=== PATIENT | male | born 1955 | race Caucasian/White ===

== ENCOUNTER 2017-08-02 17:30 | Inpatient (IN) | payer OTHER ==
[~2017-08-02] VITALS: Ht 181.6 cm; Wt 97.2 kg
[~2017-08-02 17:30] MED LIST: ALLO300T29 PO; ASA325 PO; ATEN50TA7 PO; FISH PO; MELA3TAB46 PO; METF10002 PO; MULT-1018 PO; [UNRECOGNIZED DRUG - CODE] PO
[2017-08-02 17:43] VITALS: BP 113/80; PULSE 86; RESP 16; O2SAT 97
[2017-08-02 17:57] VITALS: PULSE 134; RESP 20; O2SAT 100
[2017-08-02 18:23] LABS: BASOPHILS % (AUTO) 0.3 % (0-3); EOSINOPHILS % (AUTO) 2.2 % (0-5); MONOCYTES % (AUTO) 11.6 % (4-12); Mean Corpuscular Hemoglobin 30.2 pg (27.0-35.0); NEUTROPHILS % (AUTO) 70.8 % (40-74); Platelet Count 251 bil/L (150-400)
--- NOTE | 2017-08-02 18:36 | ED.REPORT ---
HPI-Abd Pain M 40 and Over Date of Service Aug 02, 2017 ED Provider: Gabriel Meyer DO A 62 year old male with a history of appendectomy, hernia, diabetes and hypertension presents to the ED complaining of diarrhea. The pt has been experiencing watery diarrhea for nearly five weeks. He initially experienced eight to ten episodes daily. The pt also had hives for several days two weeks ago, but this has resolved. He admits to abdominal pain and diaphoresis but denies pain with bowel movements. A stool sample left with his PCP tested negative for C. difficile, parasites, and other concerning causes of diarrhea. He was prescribed antibiotics on 07/29/2017 and felt well for three days. However the pt once again experienced watery diarrhea this morning, in addition to two episodes of hematochezia and increased gas. He also had one episode of nausea and vomiting today, which is the first time that this has happened since his symptoms began. The pt's last colonoscopy was five years ago, at which point several polyps were removed. Nursing Notes Stated Complaint: STOMACH Chief Complaint: Male Abdominal Pain Nursing Notes Reviewed: Yes Allergies: Coded Allergies: Penicillins (Verified Allergy, Severe, WEIGHT LOSS AND TURNED BRIGHT RED, 08/02/17) morphine (Verified Allergy, Severe, VIOLENT VOMITING, 08/02/17) Scheduled Allopurinol-Expunged Drug, Do Not Renew! (Allopurinol-Expunged Drug, Do Not Renew!) 300 Mg Tablet 300 MG PO AM Aspirin-Expunged Drug, Do Not Renew! (Aspirin-Expunged Drug, Do Not Renew!) 325 Mg Tablet 325 MG PO DAILY Atenolol-Expunged Drug, Do Not Renew! (Atenolol-Expunged Drug, Do Not Renew!) 50 Mg Tablet 50 MG PO AM Fish Oil-Expunged Drug, Do Not Renew! (Fish Oil-Expunged Drug, Do Not Renew!) Cap 3 CAP PO BID MELATONIN-Expunged Drug, Do Not Renew! (MELATONIN-Expunged Drug, Do Not Renew!) 3 Mg Tab.rapdis 3 MG PO HS MULTIVITAMIN-Expunged Drug, Do Not Renew! (MULTI VITAMIN -Expunged Drug, Do Not Renew!) 1 Each Tablet 1 EACH PO DAILY Metformin-Expunged Drug, Do Not Renew! (Metformin-Expunged Drug, Do Not Renew!) 1,000 Mg Tablet 1,000 MG PO AM CONTRAINDICATED: MALES SrCr 1.5 OR GREATER; FEMALES SrCr 1.4 ORGREATER ORCrCl <60; HOLD METFORMIN 48 HOURS AFTER IV CONTRAST ADMINISTRATION. Triamterene/HCTZ-Expunged Drug, Do Not Renew! (TILDBFT-70-Qmeibwff Drug, Do Not Renew!) 1 Ea Cap 1 EA PO AM General Time Seen by MD: 18:31 Chief Complaint Other (Diarrhea) Hx Obtained From: Patient Arrived By: Walk-in Sudden in Onset?: No Onset Occurred: More than a week ago... Symptom Duration: Since onset Recent Healthcare: Recent doctor visit Similar Sx Previous: No Past Medical History Past Medical History kidney stones Reports: Diabetes mellitus, Hypertension Past Surgical History hernia repair Reports: Appendectomy Smoking History Current Some Day Smoker (cigar) Social History Other Social History: Good social support Ambulatory Status Independent Review of Systems Review of Systems Note: denies pain with bowel movements Respiratory: Denies: Non-productive cough, Shortness of breath Cardiovascular: Denies: Chest pain GI: Reports: Abdominal pain, Diarrhea, Hematochezia, Nausea, Vomiting Musculoskeletal: Denies: Back pain, Neck pain Complete sys rev & neg: except as marked. Skin: Reports Diaphoresis Allergy / Immune: Reports: Hives (resolved) Physical Exam Initial Vital Signs Vital Signs (First) Date Time Temp Pulse Resp B/P Pulse Ox O2 Delivery O2 Flow Rate FiO2 08/02/17 17:43 37 86 16 113/80 97 Room Air Initial VS: Reviewed General/Constitutional: Awake, Alert Respiratory / Chest: Atraumatic, Breath sounds NL, Breath sounds = bilat, No respiratory distress Cardiovascular: Heart rate NL, Regular rhythm, Heart sounds NL Abdomen: Atraumatic, Soft mild right-sided tenderness Back: Atraumatic, Full range of motion Head / Eyes: Atraumatic, Normocephalic, PERRL, EOMI ENT: Atraumatic, Airway patent, Mucous membranes moist Skin: Atraumatic, Color NL, No rash, Warm, Dry Rectum / Perineum: No gross blood, No mass small right-sided hemorrhoid, mildly inflamed no gross blood no palpable internal hemorrhoids guaiac negative Neurologic: Oriented X3, Speech NL, No motor deficits, No sensory deficits Neck: Atraumatic, Supple, Full range of motion Upper Extremity / MS: Atraumatic, Full range of motion Lower Extremity / Pelvis / MS: Atraumatic, Full range of motion Psychiatric: Affect NL, Mood NL Interpretation & Diagnostics Lab Results Interpretation Result Diagram: 08/02/177 08/02/177 Test 08/02/17 18:17 08/02/17 19:53 White Blood Count 23.1th/mm3 (3.8-10.1) Red Blood Count 5.86mil/mm3 (4.40-5.80) Hemoglobin 17.7g/dL (13.8-17.2) Hematocrit 51.0% (41.0-50.0) Mean Corpuscular Volume 87.0fL (81-100) Mean Corpuscular Hemoglobin 30.2pg (27.0-35.0) Mean Corpuscular Hemoglobin Concent 34.7% (32.0-37.0) Red Cell Distribution Width 14.2% (12.3-15.4) Platelet Count 251bil/L (150-400) Neutrophils (%) (Auto) 70.8% (40-74) Lymphocytes (%) (Auto) 14.7% (14-46) Monocytes (%) (Auto) 11.6% (4-12) Eosinophils (%) (Auto) 2.2% (0-5) Basophils (%) (Auto) 0.3% (0-3) Sodium Level 138mEq/L (134-144) Potassium Level 3.7mEq/L (3.5-5.2) Chloride Level 96mEq/L (97-108) Carbon Dioxide Level 24mmol/L (18-29) Blood Urea Nitrogen 19mg/dL (8-27) Creatinine 1.30mg/dL (0.76-1.27) Estimat Glomerular Filtration Rate 60mL/min (>59) Glucose Level 132mg/dL (60-99) Calcium Level 9.8mg/dL (8.5-10.1) Total Bilirubin 0.5mg/dL (0.0-1.2) Aspartate Amino Transf (AST/SGOT) 92U/L (0-50) Alanine Aminotransferase (ALT/SGPT) 158U/L (0-44) Alkaline Phosphatase 92U/L (25-160) Total Protein 8.1g/dL (6.4-8.4) Albumin 4.6g/dL (3.4-5.0) Lipase 46U/L (13-60) Hold Hope Top Tube Received (Received) Urine Color Dark yellow (YELLOW) Urine Appearance Hazy (CLEAR,HAZY) Urine pH 5.5 (5.0-8.0) Urine Specific [place] 1.025 (1.003-1.035) Urine Protein Negativemg/dL (NEG,TRACE) Urine Glucose (UA) Negativemg/dL (NEGATIVE) Urine Ketones Negativemg/dL (NEGATIVE) Urine Occult Blood Negative (NEGATIVE) Urine Nitrite Negative (NEGATIVE) Urine Bilirubin Negative (NEGATIVE) Urine Urobilinogen Normalmg/dL (NORMAL) Urine Leukocyte Esterase Negative (NEGATIVE) Urine RBC 0-2/hpf (0-2) Urine WBC 0-5/hpf (0-5) Urine Epithelial Cells Occasional/hpf (NONE-MOD) Urine Crystals Amorphous urates (NONE Urine Bacteria Few/hpf (NONE-FEW) Urine Hyaline Casts None/lpf (NONE) Urine Granular Casts None seen (NONE SEEN) Urine Waxy Casts None seen (NONE SEEN) Urine Red Blood Cell Casts None seen (NONE SEEN) Urine White Blood Cell Casts None seen (NONE SEEN) Urine Mucus None seen (None Seen) Urine Trichomonas None seen (NONE SEEN) Urine Yeast None (NONE SEEN) Urinalysis Comment None Urine Culture Reflexed Not indicated CT Abd / Pelvis Interpretation IMPRESSION: 1. Mild appearance of diffuse small bowel thickening suggestive of enteritis. 2. Nonspecific appearance of scattered minimally prominent fluid filled colon loops. This could be secondary to given history of diarrhea. No definitive obstruction or inflammatory change is identified. Dictated by: Shahana Siegel M.D. on 08/02/2017 at 20:47 Approved by: Shahana Siegel M.D. on 08/02/2017 at 20:49 Interpretation / Wet Read by: Interpret - Radiologist Re-Eval/Medical Decision Source of Hx: Old records Time of Eval: 22:36 Patient Status: Condition improved Re-Evaluation/Progress Note: Pt rechecked, who remains uncomfortable. Plan for GI consult is discussed. Time of Eval: 23:15 Patient Status: Condition improved Re-Evaluation/Progress Note: Pt rechecked and lab results are discussed. Pt requests admission for endoscopy. Time of Eval: 23:23 Re-Evaluation/Progress Note: Pt rechecked, who is resting. The diagnosis and plan for admission are discussed. The pt understands and agrees with the plan. All questions are addressed at this time. Consultation #1: Referral / Consult Name: Fran Joseph MD Call Returned at: 22:53 Target Developer: Agrees with eval, Agrees with plan Note: Spoke with Dr. Joseph GI, regarding pt's case. Dr. Joseph agrees with the evaluation and plan. Consultation #2: Referral / Consult Name: Fran Joseph MD Call Returned at: 23:18 Target Developer: Agrees with eval Note: Spoke with Dr. Joseph about the possibility of admission and endoscopy. Dr. Joseph requests fecal potassium and sodium. Consultation #3: Referral / Consult Name: Rey Meadows MD Consulted With: Hospitalist Call Returned at: 23:31 Target Developer: Agrees with eval, Agrees with plan, Accepts admit Note: Spoke with Dr. Meadows, hospitalist, regarding pt's case. Dr. Meadows agrees with the evaluation and agrees to admit the pt. Counseled Regarding: Diagnosis, Lab results, Need for admission Discharge & Departure Primary Impression: Enteritis Additional Impressions: Leukocytosis Leukocytosis type: unspecified Qualified Code: D72.829 - Elevated white blood cell count, unspecified Nausea & vomiting Vomiting type: unspecified Vomiting Intractability: non-intractable Qualified Code: R11.2 - Nausea with vomiting, unspecified Diarrhea Diarrhea type: unspecified type Qualified Code: R19.7 - Diarrhea, unspecified Disposition: ADMITTED TO HOSPITAL Vital Signs - All Vital Signs Date Time Temp Pulse Resp B/P Pulse Ox O2 Delivery O2 Flow Rate FiO2 08/02/17 22:00 37.1 86 16 118/78 98 Room Air 08/02/17 17:57 08/02/17 17:43 37 86 16 113/80 97 Room Air )( All Prior VS Reviewed: Yes Condition: Stable Referrals: Walker Haro MD (PCP) Fran Joseph MD Scribe Attestation Portions of this note were transcribed by Gil Martines. I, Dr. Meyer personally performed the history, physical exam and medical decision-making; I reviewed and confirmed the accuracy of the information in the transcribed note. copies to: Walker Haro MD; Fran Joseph MD, Gary R DO Aug 02, 2017 18:36 GIL MARTINES Aug 02, 2017 18:59
[2017-08-02] MEDS ORDERED: Iohexol 300 mg/mL 30 mL Inj PO ONE (19:00)
[2017-08-02] MEDS ORDERED: 0.9% Sodium Chloride 1,000 ML IV ONE (19:00)
[2017-08-02] MEDS ORDERED: Ondansetron 2 mg/mL 2 mL Inj IVPUSH ONE (19:00)
[2017-08-02 20:09] LABS: APPEARANCE,URINE HAZY (CLEAR,HAZY); COLOR,URINE DARK YELLOW (YELLOW); OCCULT BLOOD,URINE NEGATIVE (NEGATIVE); PH,URINE 5.5 (5.0-8.0); UROBILINOGEN,URINE NORMAL (NORMAL)
--- NOTE | 2017-08-02 20:50 | DRSVH ---
PROCEDURE: CT ABDOMEN AND PELVIS WITH CONTRAST ([id number]) INDICATIONS: R sided abd pain, diarrhea x1 mo, TECHNIQUE: After the administration of oral and intravenous contrast, 5 mm thick sections acquired from the diap hragms to the symphysis. 5 mm thick coronal and sagittal reformats were performed. For radiation do se reduction, the following was used: automated exposure control, adjustment of mA and/or kV accordi ng to patient size. COMPARISON: None. FINDINGS: Image quality: Excellent. ABDOMEN: Lung bases: Lung bases are clear. Heart size is normal. Solid organs: Liver and spleen are normal in size and enhancement. Gallbladder is unremarkable. Bi liary system is non-dilated. Pancreas enhances normally. No adrenal nodules. Kidneys are normal in size and enhancement, without hydronephrosis. Peritoneum and bowel: The overall bowel gas pattern is nonspecific. There are fluid filled loops of c olon, with several areas minimally prominent. Small bowel loops demonstrate overall appearance of mil d thickening. Nodes and vessels: No retroperitoneal or mesenteric adenopathy. Aorta and inferior vena cava are no rmal in caliber. Miscellaneous: No ventral hernias. PELVIS: Genitourinary: Bladder wall thickness is normal. Prostate gland is enlarged. Miscellaneous: No inguinal hernias or adenopathy. Bones: No suspicious bony lesions. No vertebral body compression fractures. IMPRESSION: 1. Mild appearance of diffuse small bowel thickening suggestive of enteritis. 2. Nonspecific appearance of scattered minimally prominent fluid filled colon loops. This could be se condary to given history of diarrhea. No definitive obstruction or inflammatory change is identified. Dictated by: Shahana Siegel M.D. on 08/02/2017 at 20:47 Approved by: Shahana Siegel M.D. on 08/02/2017 at 20:49
[2017-08-02 22:00] VITALS: BP 118/78; PULSE 86; RESP 16; O2SAT 98
[2017-08-03] VITALS (7 sets, daily range): BP systolic 114–138; BP diastolic 64–81; PULSE 54–78; RESP 16–20; O2SAT 94–98
[2017-08-03] MEDS ORDERED: 0.9% Sodium Chloride 1,000 ML IV SCH (00:43)
[2017-08-03] MEDS ORDERED: Alum-Mag Hydrox-Simeth 30 mL Suspension PO PRN (00:45)
[2017-08-03] MEDS ORDERED: Polyethylene Glycol (PEG) 17 Gm Powder PO PRN (00:45)
[2017-08-03] MEDS ORDERED: Ondansetron 2 mg/mL 2 mL Inj IVPUSH PRN (00:45)
--- NOTE | 2017-08-03 01:02 | PCM.HPMED ---
Subjective Date of Service Aug 03, 2017 Primary Provider: Admitting Physician: Rey Meadows MD Primary Care Physician: Walker Haro MD Attending Physician: Rey Meadows MD Chief Complaint: Diarrhea History of Present Illness: 62-year-old male history of hypertension and type II diabetes who presents emergency department with 5 weeks of persistent diarrhea up to 8 times daily with new bloody diarrhea today. Patient states that this came on suddenly one day and typically lasts 4-5 days before remitting for a day or so. Today the patient notes bright red bloody diarrhea this morning and had 5 bowel movements before noon. 3 of the other 4 bowel movements were nonbloody. As a first occurrence of hematochezia as his bowel movements are usually yellow in color. Patient also one bout of nonbloody emesis while in the hospital. Patient denies fever, chills, chest pain, shortness breath, anorexia, dizziness, or dysuria. He does state that he has mild epigastric pain worse on the right than on the left but denies any association with food. Over the last week or so the patient been having intermittent hives that are covered in large portions of his torso and arms that remit within 24-48 hours. Has never had this before. He denies any neurological changes. Patient has gone through evaluation by his PCP as an outpatient and in the ED today had a negative stool PCR. 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 His last colonoscopy was 5 years ago and he reports that he had a couple of small benign polyps removed. Denies a family history of colon cancer. In the emergency department the patient had a leukocytosis of 23,000, although his hemoglobin looks concentrated. Creatinine was 1.3 and has mild LFT elevations. UA was negative. CT of the abdomen shows mild diffuse small bowel thickening. Review of Systems: Complete review of systems performed; pertinent positives and negatives per history of present illness, all other systems reviewed and are negative Allergies Coded Allergies: Penicillins (Verified Allergy, Severe, WEIGHT LOSS AND TURNED BRIGHT RED, 08/02/17) morphine (Verified Allergy, Severe, VIOLENT VOMITING, 08/02/17) Home Medications Allopurinol-Expunged Drug, Do Not Renew! (Allopurinol-Expunged Drug, Do Not Renew!) 300 Mg Tablet 300 MG PO AM Aspirin-Expunged Drug, Do Not Renew! (Aspirin-Expunged Drug, Do Not Renew!) 325 Mg Tablet 325 MG PO DAILY Atenolol-Expunged Drug, Do Not Renew! (Atenolol-Expunged Drug, Do Not Renew!) 50 Mg Tablet 50 MG PO AM Fish Oil-Expunged Drug, Do Not Renew! (Fish Oil-Expunged Drug, Do Not Renew!) Cap 3 CAP PO BID MELATONIN-Expunged Drug, Do Not Renew! (MELATONIN-Expunged Drug, Do Not Renew!) 3 Mg Tab.rapdis 3 MG PO HS MULTIVITAMIN-Expunged Drug, Do Not Renew! (MULTI VITAMIN -Expunged Drug, Do Not Renew!) 1 Each Tablet 1 EACH PO DAILY Metformin-Expunged Drug, Do Not Renew! (Metformin-Expunged Drug, Do Not Renew!) 1,000 Mg Tablet 1,000 MG PO AM CONTRAINDICATED: MALES SrCr 1.5 OR GREATER; FEMALES SrCr 1.4 ORGREATER ORCrCl <60; HOLD METFORMIN 48 HOURS AFTER IV CONTRAST ADMINISTRATION. Triamterene/HCTZ-Expunged Drug, Do Not Renew! (ILXIBBC-18-Yogfuamn Drug, Do Not Renew!) 1 Ea Cap 1 EA PO AM PMH kidney stones Diabetes mellitus Hypertension Surgical History Hernia repair Appendectomy Family History Mother's past away and father has no known medical history Social History Hx Alcohol Use: No Hx Substance Use: No Hx Tobacco Use: No Smoking Status: Current Some Day Smoker (occasional cigar) Living Arrangement: with Family Exam Vital Signs Vital Sign - Last Date Time Temp Pulse Resp B/P Pulse Ox O2 Delivery O2 Flow Rate FiO2 08/02/17 22:00 37.1 86 16 118/78 98 Room Air Exam General: Pleasant age-appropriate male in no acute distress HEENT: PERRLA, EOMI, nonicteric, membranes dry Lymph: No lymphadenopathy Cardio: Regular rate and rhythm Respiratory: CTA bilaterally, no wheezes, no crackles Abdomen: Guarded, positive bowel sounds, mild tenderness in the epigastrium greater on right than on left, nondistended Extremities: No edema, 5/5 strength, sensation intact Psych: Appropriate mood and affect Neuro: CN II through XII grossly intact, sensation intact throughout Skin: No rash Lab and Diagnostics Result Diagram: 08/02/17181608/02/171816 X-Rays, CTs and MRIs Abdominal CT 1. Mild appearance of diffuse small bowel thickening suggestive of enteritis. 2. Nonspecific appearance of scattered minimally prominent fluid filled colon loops. This could be secondary to given history of diarrhea. No definitive obstruction or inflammatory change is identified. Dictated by: Shahana Siegel M.D. on 08/02/2017 at 20:47 Assessment & Plan 62-year-old male with type II diabetes and hypertension who presents to the ED due to 5 weeks of ongoing diarrhea up to 8 times daily with no hematochezia. Subacute enteritis with leukocytosis and 2 bouts of hematochezia; present admission; ongoing -Patient's been suffering from this for 5 weeks with up to 8 bowel movements daily -Patient had hematochezia this morning likely related to hemorrhoids that were seen on physical exam by the ED physician -Previous outpatient workup did not reveal a cause and PCR of stool did not reveal a obvious infectious etiology -CT of abdomen revealed diffuse small bowel thickening -Leukocytosis of 23,000 is likely dilutional but will cover with levofloxacin ( formulary) tonight -Received 1 L normal saline in the ED and 2 more on the floor -Normal saline 125 mL/HR -Dr. Joseph from gastroenterology was consult and will see the patient tomorrow -Etiology is somewhat unclear although with right upper quadrant pain questionable biliary disease causing osmotic diarrhea; also be possible Crohn's although less likely -It is also possible that this patient is now reacting to the metformin that he is been taking for some time, although this is less likely -Famotidine 20mg IV BID Acute kidney injury with AGMA; present admission; ongoing -Baseline questionable as last creatinine was couple of years ago and was 1.4; however feel this was likely not his baseline -Current creatinine was 1.3 and patient seemed contrast for CT -Avoid nephrotoxic medications -3 L normal saline and 125 mL/HR -Recheck in a.m. -If refractory to fluids and continues to progress consider ultrasound and nephrology consult -AG of 18 likely related to diarrhea Mildly elevated transaminases; present admission; ongoing -could be due to patient's dehydration -We will recheck in a.m. -If not corrected suggest ultrasound and hepatitis screen Hypertension; present on admission; ongoing -Continue home atenolol -Hold HCTZ today Type II diabetes; present on admission; ongoing -Last A1c was reportedly 7 -Home medication: Metformin -Hold metformin -No lantus ordered; recommend starting after following insulin needs for 24 hours -Low dose correctional Gout; present on admission; ongoing -And stable on allopurinol for 10 years; we will continue Disposition: Patient is being admitted to inpatient status with expected length of stay greater than two midnights due to to severity of presentation, duration of treatment, and risks of adverse events disposition Pain Evaluation: Adequate Pain Control GI Prophylaxis: H2 gabi VTE Prophylaxis Indicated: Contraindicated (rectal bleeding) VTE Mechanical Devices: Intermittant Pneumatic CD Resuscitation Status: CPR: Attempt Resuscitation Attending Statement The patient was seen and examined together with Dr. Ruiz on 08/02 and I agree with the history, exam and plan as outlined in the note above. Rick Ruiz DO Aug 03, 2017 01:02 Rey Meadows MD Aug 03, 2017 07:14
[2017-08-03] MEDS ORDERED: 0.9% Sodium Chloride 1,000 ML IV ONE (01:10)
[2017-08-03] MEDS ORDERED: Glucose 40% Oral Gel 15 Gm Tube PO PRN (01:20)
[2017-08-03] MEDS ORDERED: Dextrose 10% 250 ML IV PRN (01:30)
[2017-08-03] MEDS ORDERED: TADA5TAB2 PO (01:33)
[2017-08-03] MEDS ORDERED: ASPI-973 PO (01:33)
[2017-08-03] MEDS ORDERED: METF500T4 PO (01:33)
[2017-08-03] MEDS: levoFLOXacin Inj 750 MG in IV Premix 1 EACH IV SCH (02:40)
--- NOTE | 2017-08-03 04:03 | NUR ---
Admission Pt admitted to [facility] rm 1004 at 0115 from the ED. Pt able to transfer with [facility] from [facility] to bed. Pt is A/O x4, making needs known. Diagnosis of enteritis. Pt states pain is uncomfortable but not reportable. IV to Lt AC SL, IV fluids started. RA. SCD's. Pt oriented to room, call light. Pt has had over 30 days of diarrhea, stool samples negative. Independent in room, with steady gait to BR. NPO at this time pending GI consult. CPR. Call light in reach, family at bedside. Care continues
[2017-08-03] MEDS ORDERED: HYDROmorphone 1 mg/mL Inj IVPUSH PRN (04:45)
[2017-08-03] MEDS: 0.9% Sodium Chloride 1,000 ML IV SCH ×4 (05:32→21:55)
[2017-08-03 05:41] LABS: BASOPHILS % (AUTO) 0.3 % (0-3); EOSINOPHILS % (AUTO) 3.3 % (0-5); MONOCYTES % (AUTO) 11.5 % (4-12); Mean Corpuscular Hemoglobin 30.5 pg (27.0-35.0); Mean Corpuscular Volume 87.6 fL (81-100); Platelet Count 180 bil/L (150-400)
[2017-08-03 06:19] LABS: Magnesium 1.8 mg/dL (1.6-2.6); Phosphorus 3.2 mg/dL (2.5-4.9)
[2017-08-03] MEDS: Insulin LISPRO 300 Unit/3 mL Inj SUBQ SCH ×4 (07:16→22:00)
[2017-08-03] MEDS: Famotidine Inj 20 MG in IV Premix 1 EACH IV SCH ×2 (08:00→21:54)
[2017-08-03] MEDS: Sodium Chloride LOK Flush 10 mL Syringe IVFLUSH SCH ×2 (08:00→15:54)
[2017-08-03] MEDS ORDERED: Ciprofloxacin Inj 400 MG in IV Premix 1 EACH IV SCH (08:30)
--- NOTE | 2017-08-03 09:04 | NUR ---
Social Work: Initial Assessment D: EMR reviewed. Please see Initial Assessment linked to this note for more information. Pt is a 62 year old male admitted [place] with a readmit risk score of 3 for enteritis per H&P. Pt's insurance is [employer]. PCP is Walker Haro MD. GI to consult on pt. JAXSON met with pt and sister Floresita [phone] at bedside to conduct initial assessment. Pt was alert and oriented x3. Floresita is designated d/c planning mandolin repair person. SW explained role and wrote phone number on white board. SW provided [facility] Discharge Planning Checklist and encouraged pt to contact SW for any discharge planning questions. Pt lives at home with his father in [place]. Pt's father is independent with ADLs and pt is not a caregiver. Pt is independent with all ADLs and self care at baseline. Pt uses no DME at baseline. Pt drives. Pt has no HH or SNF history. Pt has no LTC or VA benefits. Pt has no DPOA on file, pt declined information related to DPOA. Pt is likely to d/c home with family to transport via POV. No orders have been received at this time. SW will continue to follow. A: Pt who is independent at baseline and has the capacity for self-care. P: Pt anticipated to discharge home with family to transport via POV. No SW needs identified, no MD orders received at this time. SW will continue to follow for needs until time of discharge. RO Joya Addendum: 08/03/17 at 0906 by MAIRA JEAN Amended: Links added.
[2017-08-03] MEDS ORDERED: KRIL1CAP PO (09:30)
--- NOTE | 2017-08-03 14:43 | PCM.CHPMED ---
Subjective Date of Service: Aug 03, 2017 Provider requesting consult: Gabriel Meyer DO Primary Physician: Admitting Physician: Rey Meadows MD Primary Care Physician: Walker Haro MD Attending Physician: Nirali Hernandez DO Admit Status: From the Emergency Department Chief Complaint: Chief Complaint: Diarrhea History of Present Illness: GASTROENTEROLOGY CONSULT NOTE: Attending Physician: Fran Joseph MD Resident Physician: Alisha Plaza DO Xavier Reid is a 62-year-old gentleman with a history of hypertension, diabetes mellitus type 2, and nephrolithiasis who presented to the ED with a 5 week history of diarrhea, now with 1-2 days of bloody stool. He states that a little over a month ago he developed profound diarrhea, noting 8+ liquid stools per day. Associated symptoms at that time included: fatigue, malaise, and generalized weakness as well as hives across his abdomen for 4-5 days. He states that the rash did not itch and has since resolved without treatment. He was evaluated by his PCP since the onset of symptoms and a stool sample was reportedly negative for C. diff, parasites, or other concerning causes of diarrhea. He notes that after approximately two weeks he started to feel better but his symptoms ultimately returned. He denies abdominal pain, urinary symptoms , recent travel, sick contacts, changes in diet or medications. Prior to the day of admission he denies bloody or dark black stool. At presentation he reported bright red blood per rectum and 5 bowel movements that morning. Additionally, he had been without nausea or vomiting but vomited once in the ED. This was noted to be bilious in nature and without blood. Currently he denies headache, dizziness, change in vision, rash, fever, chills, chest pain, shortness of breath, and abdominal pain. He has not appreciated a pattern to his symptoms or any aggravating or alleviating factors. He states that he does not drink alcohol and occasionally smokes a cigar. He denies illicit drug use and recently retired. He reports a colonoscopy five years ago where a few benign polyps were removed. He has no known history of gastrointestinal disorders or colon cancer. In the ED, vital signs were within normal limits. CBC was significant for a leukocytosis (wbc 23.1), hemoconcentration (Hb 17.7/Hct 51) and CMP showed a creatinine of 1.3 and mildly elevated LFTs. Stool PCR and UA were negative and CT abdomen showed mild appearance of diffuse small bowel thickening suggestive of enteritis and no definitive obstruction or inflammatory change is identified. Review of Systems: Complete review of systems conducted and as above in history and physical. Otherwise negative. PMH Past Medical History Nephrolithiasis Diabetes mellitus Hypertension Gout Bedside Blood Glucose: 113 Surgical History Hernia repair Appendectomy Home Medications Aspirin 81mg daily Metformin 500mg PO BID Tadalafil 5mg PO prn Atenolol 50mg PO BID Allopurinol 300mg PO AM Allergies: Coded Allergies: Penicillins (Verified Allergy, Severe, WEIGHT LOSS AND TURNED BRIGHT RED, 08/02/17) morphine (Verified Allergy, Severe, VIOLENT VOMITING, 08/02/17) Family History Family History Patient reports a mother with prior CVA, sister with breast cancer-currently undergoing treatment, and no known history of colon cancer. . Social History Hx Alcohol Use: NoHx Substance Use: NoHx Tobacco Use: No Smoking Status: Current Some Day Smoker (occasional cigar) Living Arrangement: with Family Exam Vital Signs Vital Sign - Last Date Time Temp Pulse Resp B/P Pulse Ox O2 Delivery O2 Flow Rate FiO2 08/03/17 07:55 36.8 68 18 118/64 97 Room Air Intake and Output 08/02/17 08/02/17 08/03/17 Cumulative From/Thru 15:00 23:00 07:00 08/02/17 17:43 - 08/03/17 05:39 Intake Total 1000 ml 200 ml 1200 ml Output Total 200 ml 200 ml Balance 1000 ml 0 ml 1000 ml Intake Oral 200 ml 200 ml IV Total 1000 ml 1000 ml Output Urine Total 200 ml 200 ml # Bowel Movements 3 3 General: Alert, Oriented X3, No Acute Distress Head: Normal Eyes: PERRLA, EOMI, Scleral Anicteric Mouth: Mucous Membr Moist/[place] Chest & Lungs: Clear to auscultation & percussion Cardiovascular: Regular Rate/Rhythm, Normal S1, Normal S2 Abdomen: Tender (mild RUQ/epigastric tenderness), Non-distended, No masses Extremities: No cyanosis/clubbing/edma bilat Neurological: Grossly Neurologically Intact, Normal Speech Lab and Diagnostics Labs Laboratory Tests Test 08/02/17 18:17 08/02/17 19:53 08/03/17 00:54 08/03/17 05:05 White Blood Count 23.1th/mm3 (3.8-10.1) 10.3th/mm3 (3.8-10.1) Red Blood Count 5.86mil/mm3 (4.40-5.80) 4.59mil/mm3 (4.40-5.80) Hemoglobin 17.7g/dL (13.8-17.2) 14.0g/dL (13.8-17.2) Hematocrit 51.0% (41.0-50.0) 40.2% (41.0-50.0) Mean Corpuscular Volume 87.0fL (81-100) 87.6fL (81-100) Mean Corpuscular Hemoglobin 30.2pg (27.0-35.0) 30.5pg (27.0-35.0) Mean Corpuscular Hemoglobin Concent 34.7% (32.0-37.0) 34.8% (32.0-37.0) Red Cell Distribution Width 14.2% (12.3-15.4) 13.9% (12.3-15.4) Platelet Count 251bil/L (150-400) 180bil/L (150-400) Neutrophils (%) (Auto) 70.8% (40-74) 62.0% (40-74) Lymphocytes (%) (Auto) 14.7% (14-46) 22.8% (14-46) Monocytes (%) (Auto) 11.6% (4-12) 11.5% (4-12) Eosinophils (%) (Auto) 2.2% (0-5) 3.3% (0-5) Basophils (%) (Auto) 0.3% (0-3) 0.3% (0-3) Sodium Level 138mEq/L (134-144) 140mEq/L (134-144) Potassium Level 3.7mEq/L (3.5-5.2) 3.8mEq/L (3.5-5.2) Chloride Level 96mEq/L (97-108) 106mEq/L (97-108) Carbon Dioxide Level 24mmol/L (18-29) 21mmol/L (18-29) Blood Urea Nitrogen 19mg/dL (8-27) 18mg/dL (8-27) Creatinine 1.30mg/dL (0.76-1.27) 1.14mg/dL (0.76-1.27) Estimat Glomerular Filtration Rate 60mL/min (>59) 70mL/min (>59) Glucose Level 132mg/dL (60-99) 113mg/dL (60-99) Calcium Level 9.8mg/dL (8.5-10.1) 8.2mg/dL (8.5-10.1) Total Bilirubin 0.5mg/dL (0.0-1.2) 0.6mg/dL (0.0-1.2) Aspartate Amino Transf (AST/SGOT) 92U/L (0-50) 58U/L (0-50) Alanine Aminotransferase (ALT/SGPT) 158U/L (0-44) 105U/L (0-44) Alkaline Phosphatase 92U/L (25-160) 60U/L (25-160) Total Protein 8.1g/dL (6.4-8.4) 5.6g/dL (6.4-8.4) Albumin 4.6g/dL (3.4-5.0) 3.5g/dL (3.4-5.0) Lipase 46U/L (13-60) Hold Hope Top Tube Received (Received) Urine Color Dark yellow (YELLOW) Urine Appearance Hazy (CLEAR,HAZY) Urine pH 5.5 (5.0-8.0) Urine Specific [place] 1.025 (1.003-1.035) Urine Protein Negativemg/dL (NEG,TRACE) Urine Glucose (UA) Negativemg/dL (NEGATIVE) Urine Ketones Negativemg/dL (NEGATIVE) Urine Occult Blood Negative (NEGATIVE) Urine Nitrite Negative (NEGATIVE) Urine Bilirubin Negative (NEGATIVE) Urine Urobilinogen Normalmg/dL (NORMAL) Urine Leukocyte Esterase Negative (NEGATIVE) Urine RBC 0-2/hpf (0-2) Urine WBC 0-5/hpf (0-5) Urine Epithelial Cells Occasional/hpf (NONE-MOD) Urine Crystals Amorphous urates (NONE Urine Bacteria Few/hpf (NONE-FEW) Urine Hyaline Casts None/lpf (NONE) Urine Granular Casts None seen (NONE SEEN) Urine Waxy Casts None seen (NONE SEEN) Urine Red Blood Cell Casts None seen (NONE SEEN) Urine White Blood Cell Casts None seen (NONE SEEN) Urine Mucus None seen (None Seen) Urine Trichomonas None seen (NONE SEEN) Urine Yeast None (NONE SEEN) Urinalysis Comment None Urine Culture Reflexed Not indicated Procalcitonin 0.02ng/mL (0.00-0.08) 0.05ng/mL (0.00-0.08) Lactic Acid Level 0.8mmol/L (0.4-2.0) Phosphorus Level 3.2mg/dL (2.5-4.9) Magnesium Level 1.8mg/dL (1.6-2.6) Microbiology 08/03/17 Blood Culture- pending 08/02/17 Stool PCR- Negative Result Diagram: 08/03/17 0505 08/03/17 0505 X-Rays, CTs and MRIs 08/02/17 - CT ABDOMEN AND PELVIS WITH CONTRAST IMPRESSION: 1. Mild appearance of diffuse small bowel thickening suggestive of enteritis. 2. Nonspecific appearance of scattered minimally prominent fluid filled colon loops. This could be secondary to given history of diarrhea. No definitive obstruction or inflammatory change is identified. Approved by: Shahana Siegel M.D. on 08/02/2017 at 20:49 . Assessment & Plan Assessment 62-year-old gentleman with a history of hypertension, diabetes mellitus type 2, gout, and nephrolithiasis who presented to the ED with a 5 week history of diarrhea and 1-2 days of bright red per rectum. GI consulted for further evaluation and management of possible GI bleed. Subacute enteritis uncertain etiology. -Etiologies to consider include: IBD, infectious, IBS, secretory diarrhea, microscopic colitis, and malabsorption syndromes. Possibly infectious, patient presented with a leukocytosis (wbc 23.1) and diarrhea for the past 5 weeks. However, he remains afebrile, leukocytosis has resolved and stool studies here and reportedly in the outpatient setting as well were negative. He did report 2- 3 episodes of hematochezia. However, he does have a history of hemorrhoids which is likely the source for his rectal bleeding. Patient's RUQ and epigastric tenderness on exam concerning for biliary disease and/or pancreatitis. Although imaging and lab findings thus far do not support this; lipase is within normal limits and LFTs not consistent with cholestasis. -CT abdomen did show diffuse small bowel thickening and no definitive obstruction or inflammatory change is identified. Elevated transaminases, uncertain etiology. -AST/ALT mildly elevated at 92/158 on admission with normal alk phos and total bili thus gallbladder pathology less likely. -AST and ALT trended down overnight, most recently AST 58 and ALT 105. Patient may have a component of fatty liver disease as AST/ALT are < 4 times upper limit of normal. -Pt denies hx of hepatitis and alcohol use. No hepatitis serologies on file, unlikely contributing but will consider checking if LFTs remain elevated or symptoms do not start to improve. RECOMMENDATIONS: -Check Giardia and cryptococcus antigen as these are more sensitive than PCR -Will check stool electrolytes and calculate osmotic gap. An osmotic gap of > 125 mOsm/kg suggests an osmotic diarrhea while a gap of <50 mOsm/kg suggests a secretory diarrhea -Continue antibiotics for now -Cholestyramine and Lomotil scheduled -Stop immodium Additional problems managed by primary hospitalist: -Acute kidney injury -Mildly elevated transaminases -Hypertension -Type II diabetes -Gout . I have seen and examined the patient with the resident and agree with above. Problems: Pain Evaluation: Adequate Pain Control GI Prophylaxis: H2 gabi VTE Prophylaxis Indicated: Contraindicated (rectal bleeding) VTE Mechanical Devices: Intermittant Pneumatic CD Resuscitation Status: CPR: Attempt Resuscitation Alisha Plaza DO Aug 03, 2017 08:32 Fran Joseph MD Aug 06, 2017 09:11
--- NOTE | 2017-08-03 14:44 | PCM.PNMED ---
Subjective Date of Service Aug 03, 2017 Subjective Patient is seen and examined, he says he had >9 BM this AM, has had some more nausea/vomiting. is recording these episodes carefully. States he came to the ED because he is "sick of" this not resolvign for 5-6 weeks. No c/o abdominal pain. States he saw " quite a bit of blood" in toilet. He was told he had a hemorrhoid int he ED. States blood was bright red. Had a colonoscopy when he was 57, does not remember who did it, it was at [facility] and he was told he is fine. Exam Vital Signs Vital Sign - Last Date Time Temp Pulse Resp B/P Pulse Ox O2 Delivery O2 Flow Rate FiO2 08/03/17 12:38 37.0 64 20 114/72 96 Room Air Intake and Output 08/02/17 08/02/17 08/03/17 Cumulative From/Thru 15:00 23:00 07:00 08/02/17 17:43 - 08/03/17 05:39 Intake Total 1000 ml 200 ml 1200 ml Output Total 200 ml 200 ml Balance 1000 ml 0 ml 1000 ml Intake Oral 200 ml 200 ml IV Total 1000 ml 1000 ml Output Urine Total 200 ml 200 ml # Bowel Movements 3 3 Exam General: NAD HEENT: NCAT Heart: RRR, no s3/s4 Lungs: CTA, no crackles or wheezes Abd: NT/ND, normal bowel sounds Neuro: AOA X 3, no focal deficits Psych: No agitation, affect is calm IVs and Medications IV Fluids NSS 100 cc/hr Medications Reviewed: Medications were reviewed in detail Lab and Diagnostics Result Diagram: 08/03/17 0505 08/03/17 0505 X-Rays, CTs and MRIs Abdominal CT 1. Mild appearance of diffuse small bowel thickening suggestive of enteritis. 2. Nonspecific appearance of scattered minimally prominent fluid filled colon loops. This could be secondary to given history of diarrhea. No definitive obstruction or inflammatory change is identified. Dictated by: Shahana Siegel M.D. on 08/02/2017 at 20:47 Assessment & Plan 62-year-old male with type II diabetes and hypertension who presents to the ED due to 5 weeks of ongoing diarrhea up to 8 times daily with no hematochezia. Subacute enteritis with leukocytosis and 2 bouts of hematochezia; present admission; ongoing -Patient's been suffering from this for 5 weeks with up to 8 bowel movements daily -Patient had hematochezia this morning likely related to hemorrhoids that were seen on physical exam by the ED physician -Previous outpatient workup did not reveal a cause and PCR of stool did not reveal a obvious infectious etiology -Etiology is somewhat unclear although with right upper quadrant pain questionable biliary disease causing osmotic diarrhea; also be possible Crohn's although less likely, he would have presented sooner. It is also possible that this patient is now reacting to the metformin that he is been taking for some time, although this is less likely -CT of abdomen revealed diffuse small bowel thickening -Leukocytosis of 23,000 iat admission, improved today at 10.3 -Received 1 L normal saline in the ED and 2 more on the floor -Normal saline 125 mL/HR -Dr. Joseph from gastroenterology was consult and will see the patient -Blood Cx are ordered and pending -IV Levaquin recommended for severe diarrhea like the one he is having -Famotidine 20mg IV BID Acute kidney injury with AGMA; present admission; ongoing -Baseline questionable as last creatinine was couple of years ago and was 1.4; however feel this was likely not his baseline -Current creatinine was 1.3 and patient had contrast for CT -Avoid nephrotoxic medications -NSS 125 mL/HR -If refractory to fluids and continues to progress consider ultrasound and nephrology consult -AG of 18 -->13 this am Mildly elevated transaminases; present admission; resolved - could be due to patient's dehydration --Due to his age, will order hep panel. Fatty liver is likely as ALT>AST --He has no RUQ pain to suggest biliary etiologies. -- RUQ U/S Hypertension; present on admission; ongoing -Continue home atenolol -Hold HCTZ today Type II diabetes; present on admission; ongoing -Last A1c was reportedly 7, A1C is pending -Home medication: Metformin -Hold metformin -Low dose correctional Gout; present on admission; ongoing -And stable on allopurinol for 10 years; we will continue Disposition: Patient is being admitted to inpatient status with expected length of stay greater than two midnights due to to severity of presentation, duration of treatment, and risks of adverse events disposition GI Prophylaxis: H2 gabi VTE Mechanical Devices: Intermittant Pneumatic CD Resuscitation Status: CPR: Attempt Resuscitation Time spent 30 min Nirali Hernandez DO Aug 03, 2017 14:32
--- NOTE | 2017-08-03 18:14 | NUR ---
Diarrhea/NPO Continues with ~hourly diarrhea. NPO for possible surgery. Confirmed with endo RN to keep pt NPO pending GI consult tonight.
--- NOTE | 2017-08-03 18:59 | DRSVH ---
PROCEDURE: US ABDOMEN, LIMITED ([id number]) INDICATIONS: nausea, elevated LFT TECHNIQUE: Real-time focused scanning was performed of the abdomen, with image documentation. COMPARISON: None. FINDINGS: The gallbladder wall measures up to 2.4 mm in thickness. No stones, sludge, or pericholecys tic fluid. The common bile duct measures 9.0 mm in diameter. IMPRESSION: 1. Mild common bile duct dilatation. No other findings to suggest biliary obstruction. If there is cl inical suspicion for choledocholithiasis or central biliary mass, MRCP may be helpful. 2. No findings to suggest acute cholecystitis. Dictated by: Christine Gray M.D. on 08/03/2017 at 18:56 Approved by: Christine Gray M.D. on 08/03/2017 at 18:58
[2017-08-03] MEDS ORDERED: DiphenOXYlate-Atropine 2.5 mg-0.025 mg Tablet PO PRN (19:55)
[2017-08-03] MEDS: Cholestyramine Resin Powder 4 Gm Packet PO SCH (22:21)
[2017-08-04] MEDS: Sodium Chloride LOK Flush 10 mL Syringe IVFLUSH SCH ×3 (00:30→16:08)
[2017-08-04 00:40] VITALS: BP 112/68; PULSE 69; RESP 16; O2SAT 92
[2017-08-04] MEDS: levoFLOXacin Inj 750 MG in IV Premix 1 EACH IV SCH (01:44)
[2017-08-04] MEDS: DiphenOXYlate-Atropine 2.5 mg-0.025 mg Tablet PO SCH ×3 (03:31→20:51)
[2017-08-04] MEDS: Cholestyramine Resin Powder 4 Gm Packet PO SCH ×4 (03:32→20:50)
[2017-08-04 04:07] LABS: Hepatitis A Antibody IgM Negative (Negative); Hepatitis B Core Antibody IgM Negative (Negative)
--- NOTE | 2017-08-04 04:40 | NUR ---
ACTIVITY: Pt. resting in bed most of the night, was awaken at 0330 for po medications, was unable to go back to sleep, then got up and ambulated around the hallway with his sister at his side. Pt. reported 2 liquid stools tonight one around 1800 and another one at about 2024, voided twice, denies nausea or vomiting. A & O, vss. On going care.
[2017-08-04 05:50] VITALS: BP 117/76; PULSE 54; RESP 16; O2SAT 96
[2017-08-04] MEDS: Insulin LISPRO 300 Unit/3 mL Inj SUBQ SCH ×4 (08:00→21:30)
[2017-08-04] MEDS: Famotidine Inj 20 MG in IV Premix 1 EACH IV SCH ×2 (08:28→20:51)
[2017-08-04 08:59] VITALS: BP 121/84; PULSE 53; RESP 16; O2SAT 99
[2017-08-04] MEDS: 0.9% Sodium Chloride 1,000 ML IV SCH ×2 (09:12→16:25)
--- NOTE | 2017-08-04 09:18 | PCM.PNMED ---
Subjective Date of Service Aug 04, 2017 Subjective GASTROENTEROLOGY PROGRESS NOTE: Attending Physician: Fran Joseph MD Resident Physician: Alisha Plaza DO No acute events overnight. Patient is doing well this morning and notes improvement in his diarrhea overnight. He denies fever, chills, abdominal pain, nausea, bloody or dark colored stool. He reports one BM overnight, which is a significant change from more than 10 the yesterday. Exam Vital Signs Vital Sign - Last Date Time Temp Pulse Resp B/P Pulse Ox O2 Delivery O2 Flow Rate FiO2 08/04/17 08:59 36.4 53 16 121/84 99 Room Air Intake and Output 08/03/17 08/03/17 08/04/17 Cumulative From/Thru 15:00 23:00 07:00 08/02/17 17:43 - 08/04/17 06:50 Intake Total 2224 ml 1514 ml 1921 ml 6859 ml Output Total 1550 ml 850 ml 2600 ml Balance 2224 ml -36 ml 1071 ml 4259 ml Intake Oral 0 ml 620 ml 820 ml IV Total 2224 ml 1514 ml 1301 ml 6039 ml Output Urine Total 1300 ml 500 ml 2000 ml Stool Total 250 ml 350 ml 600 ml # Bowel Movements 5 1 9 Exam General: Well-appearing, age-appropriate male in no acute distress. HEENT: Atraumatic. Anicteric sclera. Mucous membranes moist/pink Lungs: Clear to auscultation bilaterally with no crackles, wheezes, or rhonchi. Cardiovascular: Regular rate/rhythm. No murmurs Abdomen: Soft, Non-tender, Non-distended, No masses, Normoactive bowel tones Extremities: No cyanosis or edema Skin: Warm and dry. No obvious rashes or ulcerations Neurological: AOx3, No focal neurologic deficit. Normal speech IVs and Medications Medications Reviewed: Medications were reviewed in detail Lab and Diagnostics Laboratory Tests Test 08/03/17 17:42 08/03/17 18:01 08/03/17 20:35 08/03/17 20:55 Hemoglobin 14.3g/dL (13.8-17.2) 14.3g/dL (13.8-17.2) Hematocrit 40.2% (41.0-50.0) 41.8% (41.0-50.0) Test 08/04/17 00:55 08/04/17 05:25 Hemoglobin 13.7g/dL (13.8-17.2) 13.5g/dL (13.8-17.2) Hematocrit 40.0% (41.0-50.0) 39.4% (41.0-50.0) Sodium Level 141mEq/L (134-144) Potassium Level 3.9mEq/L (3.5-5.2) Chloride Level 107mEq/L (97-108) Carbon Dioxide Level 21mmol/L (18-29) Blood Urea Nitrogen 12mg/dL (8-27) Creatinine 1.06mg/dL (0.76-1.27) Estimat Glomerular Filtration Rate 76mL/min (>59) Glucose Level 116mg/dL (60-99) Calcium Level 8.2mg/dL (8.5-10.1) Microbiology 08/03/17 Blood Culture - NO GROWTH AFTER 24 HOURS 08/03/17 Stool for WBCs - Pending 08/03/17 Stool PCR - negative 08/03/17 Cryptococcus stool Ag- pending 08/03/17 Stool osmolality/electrolytes- pending 08/03/17 Hepatitis panel- Negative Result Diagram: 08/04/17 0525 08/04/17 0525 X-Rays, CTs and MRIs 08/02/17 - CT ABDOMEN AND PELVIS WITH CONTRAST IMPRESSION: 1. Mild appearance of diffuse small bowel thickening suggestive of enteritis. 2. Nonspecific appearance of scattered minimally prominent fluid filled colon loops. This could be secondary to given history of diarrhea. No definitive obstruction or inflammatory change is identified. Approved by: Shahana Siegel M.D. on 08/02/2017 at 20:49 08/03/17 - US ABDOMEN, LIMITED IMPRESSION: 1. Mild common bile duct dilatation. No other findings to suggest biliary obstruction. If there is clinical suspicion for choledocholithiasis or central biliary mass, MRCP may be helpful. 2. No findings to suggest acute cholecystitis. Approved by: Christine Gray M.D. on 08/03/2017 at 18:58 . Assessment & Plan 62-year-old gentleman with a history of hypertension, diabetes mellitus type 2, gout, and nephrolithiasis who presented to the ED with a 5 week history of diarrhea and 1-2 days of bright red per rectum. GI consulted for further evaluation and management of possible GI bleed. Subacute enteritis uncertain etiology. -Etiologies to consider include: IBD, infectious, IBS, secretory diarrhea, microscopic colitis, and malabsorption syndromes. Possibly infectious, patient presented with a leukocytosis (wbc 23.1) and diarrhea for the past 5 weeks. However, he remains afebrile, leukocytosis has resolved and stool studies here and reportedly in the outpatient setting as well were negative. He did report 2- 3 episodes of hematochezia. However, he does have a history of hemorrhoids which is likely the source for his rectal bleeding. Patient's RUQ and epigastric tenderness on exam concerning for biliary disease and/or pancreatitis. Although imaging and lab findings thus far do not support this; lipase is within normal limits and LFTs not consistent with cholestasis. -CT abdomen did show diffuse small bowel thickening and no definitive obstruction or inflammatory change is identified. Elevated transaminases, uncertain etiology. -AST/ALT mildly elevated at 92/158 on admission with normal alk phos and total bili thus gallbladder pathology less likely. -AST and ALT trended down overnight, most recently AST 58 and ALT 105. Patient may have a component of fatty liver disease as AST/ALT are < 4 times upper limit of normal. -Pt denies hx of hepatitis and alcohol use. No hepatitis serologies on file, unlikely contributing but will consider checking if LFTs remain elevated or symptoms do not start to improve. RECOMMENDATIONS: -Giardia, cryptococucs antigens and stool electrolytes/osmolarity, still pending. -Continue antibiotics, cholestyramine, and lomotil Additional problems managed by primary hospitalist: -Acute kidney injury -Mildly elevated transaminases -Hypertension -Type II diabetes -Gout . I have seen and examined the patient. Agree with above. GI Prophylaxis: H2 gabi VTE Mechanical Devices: Intermittant Pneumatic CD Resuscitation Status: CPR: Attempt Resuscitation Alisha Plaza DO Aug 04, 2017 09:12 Fran Joseph MD Aug 06, 2017 09:20 Alisha Plaza DO Aug 04, 2017 09:12
[2017-08-04] MEDS ORDERED: ATEN50TA PO (09:48)
[2017-08-04] MEDS ORDERED: ALLO300T2 PO (09:48)
[2017-08-04] MEDS ORDERED: MULT1CAP33 PO (09:48)
[2017-08-04] MEDS ORDERED: TRIA1TAB3 PO (09:48)
--- NOTE | 2017-08-04 12:34 | PCM.PNMED ---
Subjective Date of Service Aug 04, 2017 Subjective Patient notes last bowel movement was last night. His improving abdominal cramping. Denies any fevers or chills. Exam Vital Signs Vital Sign - Last Date Time Temp Pulse Resp B/P Pulse Ox O2 Delivery O2 Flow Rate FiO2 08/04/17 08:59 36.4 53 16 121/84 99 Room Air Intake and Output 08/03/17 08/03/17 08/04/17 Cumulative From/Thru 15:00 23:00 07:00 08/02/17 17:43 - 08/04/17 06:50 Intake Total 2224 ml 1514 ml 1921 ml 6859 ml Output Total 1550 ml 850 ml 2600 ml Balance 2224 ml -36 ml 1071 ml 4259 ml Intake Oral 0 ml 620 ml 820 ml IV Total 2224 ml 1514 ml 1301 ml 6039 ml Output Urine Total 1300 ml 500 ml 2000 ml Stool Total 250 ml 350 ml 600 ml # Bowel Movements 5 1 9 Exam Constitutional: Middle-aged male in no acute distress Head: Normocephalic atraumatic Chest: Clear to auscultation Cor: Regular rate and rhythm S1-S2 without murmur Abdomen: Soft nontender bowel sounds present Extremities: No pedal edema Psych: Mood and affect appropriate Neuro: Alert and oriented 3, motor strength is intact bilaterally Lab and Diagnostics Laboratory Tests 72 Hours Test 08/02/17 18:17 08/02/17 19:53 08/03/17 00:54 08/03/17 05:05 White Blood Count 23.1th/mm3 (3.8-10.1) 10.3th/mm3 (3.8-10.1) Red Blood Count 5.86mil/mm3 (4.40-5.80) 4.59mil/mm3 (4.40-5.80) Hemoglobin 17.7g/dL (13.8-17.2) 14.0g/dL (13.8-17.2) Hematocrit 51.0% (41.0-50.0) 40.2% (41.0-50.0) Mean Corpuscular Volume 87.0fL (81-100) 87.6fL (81-100) Mean Corpuscular Hemoglobin 30.2pg (27.0-35.0) 30.5pg (27.0-35.0) Mean Corpuscular Hemoglobin Concent 34.7% (32.0-37.0) 34.8% (32.0-37.0) Red Cell Distribution Width 14.2% (12.3-15.4) 13.9% (12.3-15.4) Platelet Count 251bil/L (150-400) 180bil/L (150-400) Neutrophils (%) (Auto) 70.8% (40-74) 62.0% (40-74) Lymphocytes (%) (Auto) 14.7% (14-46) 22.8% (14-46) Monocytes (%) (Auto) 11.6% (4-12) 11.5% (4-12) Eosinophils (%) (Auto) 2.2% (0-5) 3.3% (0-5) Basophils (%) (Auto) 0.3% (0-3) 0.3% (0-3) Sodium Level 138mEq/L (134-144) 140mEq/L (134-144) Potassium Level 3.7mEq/L (3.5-5.2) 3.8mEq/L (3.5-5.2) Chloride Level 96mEq/L (97-108) 106mEq/L (97-108) Carbon Dioxide Level 24mmol/L (18-29) 21mmol/L (18-29) Blood Urea Nitrogen 19mg/dL (8-27) 18mg/dL (8-27) Creatinine 1.30mg/dL (0.76-1.27) 1.14mg/dL (0.76-1.27) Estimat Glomerular Filtration Rate 60mL/min (>59) 70mL/min (>59) Glucose Level 132mg/dL (60-99) 113mg/dL (60-99) Calcium Level 9.8mg/dL (8.5-10.1) 8.2mg/dL (8.5-10.1) Total Bilirubin 0.5mg/dL (0.0-1.2) 0.6mg/dL (0.0-1.2) Aspartate Amino Transf (AST/SGOT) 92U/L (0-50) 58U/L (0-50) Alanine Aminotransferase (ALT/SGPT) 158U/L (0-44) 105U/L (0-44) Alkaline Phosphatase 92U/L (25-160) 60U/L (25-160) Total Protein 8.1g/dL (6.4-8.4) 5.6g/dL (6.4-8.4) Albumin 4.6g/dL (3.4-5.0) 3.5g/dL (3.4-5.0) Lipase 46U/L (13-60) Hold Hope Top Tube Received (Received) Urine Color Dark yellow (YELLOW) Urine Appearance Hazy (CLEAR,HAZY) Urine pH 5.5 (5.0-8.0) Urine Specific [place] 1.025 (1.003-1.035) Urine Protein Negativemg/dL (NEG,TRACE) Urine Glucose (UA) Negativemg/dL (NEGATIVE) Urine Ketones Negativemg/dL (NEGATIVE) Urine Occult Blood Negative (NEGATIVE) Urine Nitrite Negative (NEGATIVE) Urine Bilirubin Negative (NEGATIVE) Urine Urobilinogen Normalmg/dL (NORMAL) Urine Leukocyte Esterase Negative (NEGATIVE) Urine RBC 0-2/hpf (0-2) Urine WBC 0-5/hpf (0-5) Urine Epithelial Cells Occasional/hpf (NONE-MOD) Urine Crystals Amorphous urates (NONE Urine Bacteria Few/hpf (NONE-FEW) Urine Hyaline Casts None/lpf (NONE) Urine Granular Casts None seen (NONE SEEN) Urine Waxy Casts None seen (NONE SEEN) Urine Red Blood Cell Casts None seen (NONE SEEN) Urine White Blood Cell Casts None seen (NONE SEEN) Urine Mucus None seen (None Seen) Urine Trichomonas None seen (NONE SEEN) Urine Yeast None (NONE SEEN) Urinalysis Comment None Urine Culture Reflexed Not indicated Procalcitonin 0.02ng/mL (0.00-0.08) 0.05ng/mL (0.00-0.08) Hemoglobin A1c 8.2% (4.8-5.6) Lactic Acid Level 0.8mmol/L (0.4-2.0) Phosphorus Level 3.2mg/dL (2.5-4.9) Magnesium Level 1.8mg/dL (1.6-2.6) Hepatitis A IgM Antibody Negative (Negative) Hepatitis B Surface Antigen Negative (Negative) Hepatitis B Core IgM Antibody Negative (Negative) Hepatitis C Antibody <0.1s/co ratio (0.0-0.9) Hepatitis C Comment Comment (.) Test 08/03/17 17:42 08/03/17 18:01 08/03/17 20:35 08/03/17 20:55 Hemoglobin 14.3g/dL (13.8-17.2) 14.3g/dL (13.8-17.2) Hematocrit 40.2% (41.0-50.0) 41.8% (41.0-50.0) Test 08/04/17 00:55 08/04/17 05:25 Hemoglobin 13.7g/dL (13.8-17.2) 13.5g/dL (13.8-17.2) Hematocrit 40.0% (41.0-50.0) 39.4% (41.0-50.0) Sodium Level 141mEq/L (134-144) Potassium Level 3.9mEq/L (3.5-5.2) Chloride Level 107mEq/L (97-108) Carbon Dioxide Level 21mmol/L (18-29) Blood Urea Nitrogen 12mg/dL (8-27) Creatinine 1.06mg/dL (0.76-1.27) Estimat Glomerular Filtration Rate 76mL/min (>59) Glucose Level 116mg/dL (60-99) Calcium Level 8.2mg/dL (8.5-10.1) Result Diagram: 08/04/17 0525 08/04/17 0525 X-Rays, CTs and MRIs 08/02/17 - CT ABDOMEN AND PELVIS WITH CONTRAST IMPRESSION: 1. Mild appearance of diffuse small bowel thickening suggestive of enteritis. 2. Nonspecific appearance of scattered minimally prominent fluid filled colon loops. This could be secondary to given history of diarrhea. No definitive obstruction or inflammatory change is identified. Approved by: Shahana Siegel M.D. on 08/02/2017 at 20:49 08/03/17 - US ABDOMEN, LIMITED IMPRESSION: 1. Mild common bile duct dilatation. No other findings to suggest biliary obstruction. If there is clinical suspicion for choledocholithiasis or central biliary mass, MRCP may be helpful. 2. No findings to suggest acute cholecystitis. Approved by: Christine Gray M.D. on 08/03/2017 at 18:58 . Assessment & Plan 62-year-old male with type II diabetes and hypertension who presents to the ED due to 5 weeks of ongoing diarrhea up to 8 times daily with no hematochezia. Subacute enteritis with leukocytosis and 2 bouts of hematochezia; present admission; ongoing -Patient's been suffering from this for 5 weeks with up to 8 bowel movements daily -Patient had hematochezia this morning likely related to hemorrhoids that were seen on physical exam by the ED physician -Previous outpatient workup did not reveal a cause and PCR of stool did not reveal a obvious infectious etiology -Etiology is somewhat unclear although with right upper quadrant pain questionable biliary disease causing osmotic diarrhea; also be possible Crohn's although less likely, he would have presented sooner. It is also possible that this patient is now reacting to the metformin that he is been taking for some time, although this is less likely -CT of abdomen revealed diffuse small bowel thickening -Leukocytosis of 23,000 iat admission, improved today at 10.3 -Received 1 L normal saline in the ED and 2 more on the floor -Normal saline 125 mL/HR -Dr. Joseph from gastroenterology was consult and will see the patient -Blood Cx are ordered and pending -IV Levaquin recommended for severe diarrhea like the one he is having -Famotidine 20mg IV BID -Check Cryptococcus and Giardia antigen as recommended per gastroenterology as is more sensitive than PCR Acute kidney injury with AGMA; present admission; ongoing -Baseline questionable as last creatinine was couple of years ago and was 1.4; however feel this was likely not his baseline -Current creatinine was 1.3 and patient had contrast for CT -Avoid nephrotoxic medications -NSS 125 mL/HR -If refractory to fluids and continues to progress consider ultrasound and nephrology consult -AG of 18 -->13 this am Mildly elevated transaminases; present admission; resolved - could be due to patient's dehydration --Due to his age, will order hep panel. Fatty liver is likely as ALT>AST --He has no RUQ pain to suggest biliary etiologies. Hypertension; present on admission; ongoing -Continue home atenolol -Hold HCTZ today Type II diabetes; present on admission; ongoing -Last A1c was reportedly 7, A1C is pending -Home medication: Metformin -Hold metformin -Low dose correctional Gout; present on admission; ongoing -And stable on allopurinol for 10 years; we will continue GI Prophylaxis: H2 gabi VTE Mechanical Devices: Intermittant Pneumatic CD Resuscitation Status: CPR: Attempt Resuscitation Time spent 20 minutes Yvette Fernandez MD Aug 04, 2017 12:34
[2017-08-04 13:40] VITALS: BP 110/73; PULSE 53; RESP 18; O2SAT 97
--- NOTE | 2017-08-04 13:44 | NUR ---
GI Patient had a small liquid, dark green BM this AM but nothing more since. Patient denies abdominal cramping and nausea and does state "this is the best it's been for 5 weeks". GI in to round with the patient and changed frequency of one of the GI medications to assist slowing the bowels and reducing diarrhea. Plan of care updated on white board. Continuing to assess patient's bowel movements for any changes/improvements. ADA diet is being well tolerated.
[2017-08-04 21:15] VITALS: BP 133/87; PULSE 61; RESP 16; O2SAT 97
[2017-08-05] MEDS: 0.9% Sodium Chloride 1,000 ML IV SCH ×3 (00:16→16:43)
[2017-08-05] MEDS: Sodium Chloride LOK Flush 10 mL Syringe IVFLUSH SCH ×3 (00:16→16:51)
[2017-08-05] MEDS: levoFLOXacin Inj 750 MG in IV Premix 1 EACH IV SCH (01:50)
[2017-08-05] MEDS: Cholestyramine Resin Powder 4 Gm Packet PO SCH ×4 (01:54→20:24)
--- NOTE | 2017-08-05 02:45 | NUR ---
GI/Activity Patient is alert and oriented. Last BM was morning of 08/04. Denies nausea, vomiting, and abdominal pain. Adhering to GI med plan. Patient ambulated with sister. Bed down, rails up, call light in reach. Care continues.
[2017-08-05 05:00] VITALS: BP 146/87; PULSE 61; RESP 16; O2SAT 97
[2017-08-05 05:34] LABS: BASOPHILS % (AUTO) 0.3 % (0-3); EOSINOPHILS % (AUTO) 3.2 % (0-5); MONOCYTES % (AUTO) 9.2 % (4-12); Mean Corpuscular Hemoglobin 30.6 pg (27.0-35.0); Mean Corpuscular Volume 88.7 fL (81-100); NEUTROPHILS % (AUTO) 71.6 % (40-74); Platelet Count 183 bil/L (150-400)
[2017-08-05] MEDS: Famotidine Inj 20 MG in IV Premix 1 EACH IV SCH ×2 (08:34→20:25)
[2017-08-05] MEDS: DiphenOXYlate-Atropine 2.5 mg-0.025 mg Tablet PO SCH (08:39)
[2017-08-05] MEDS: Insulin LISPRO 300 Unit/3 mL Inj SUBQ SCH ×4 (08:42→21:55)
--- NOTE | 2017-08-05 08:59 | PCM.PNMED ---
Subjective Date of Service Aug 05, 2017 Subjective GASTROENTEROLOGY PROGRESS NOTE: Attending Physician: Fran Joseph MD Resident Physician: Alisha Plzaa DO No acute events overnight. Patient is tolerating his diet and notes significant improvement in diarrhea. He denies fever, chills, abdominal pain, nausea, vomiting, bloody or dark colored stool. Exam Vital Signs Vital Sign - Last Date Time Temp Pulse Resp B/P Pulse Ox O2 Delivery O2 Flow Rate FiO2 08/05/17 05:00 36.7 61 16 146/87 97 Room Air Intake and Output 08/04/17 08/04/17 08/05/17 Cumulative From/Thru 15:00 23:00 07:00 08/02/17 17:43 - 08/05/17 06:45 Intake Total 1915 ml 1833 ml 35897 ml Output Total 700 ml 1150 ml 4450 ml Balance 1215 ml 683 ml 6157 ml Intake Oral 340 ml 250 ml 1410 ml IV Total 1575 ml 1583 ml 9197 ml Output Urine Total 700 ml 1150 ml 3850 ml Stool Total 600 ml # Bowel Movements 1 0 10 Exam General: Age-appropriate male sitting up in bed visiting with girlfriend. Appears comfortable and in no acute distress. HEENT: Normocephalic, atraumatic. Anicteric sclera. Mucous membranes moist/pink Lungs: Clear to auscultation bilaterally with no crackles, wheezes, or rhonchi. Cardiovascular: Regular rate/rhythm. No murmurs Abdomen: Soft, Non-tender, Non-distended, No masses, Normoactive bowel tones Extremities: No edema Skin: Warm and dry. No obvious rashes or ulcerations Neurological: AOx3, No focal neurologic deficit. Normal speech IVs and Medications Medications Reviewed: Medications were reviewed in detail Lab and Diagnostics Laboratory Tests Test 08/05/17 04:46 White Blood Count 11.8th/mm3 (3.8-10.1) Red Blood Count 4.71mil/mm3 (4.40-5.80) Hemoglobin 14.4g/dL (13.8-17.2) Hematocrit 41.8% (41.0-50.0) Mean Corpuscular Volume 88.7fL (81-100) Mean Corpuscular Hemoglobin 30.6pg (27.0-35.0) Mean Corpuscular Hemoglobin Concent 34.4% (32.0-37.0) Red Cell Distribution Width 13.9% (12.3-15.4) Platelet Count 183bil/L (150-400) Neutrophils (%) (Auto) 71.6% (40-74) Lymphocytes (%) (Auto) 15.4% (14-46) Monocytes (%) (Auto) 9.2% (4-12) Eosinophils (%) (Auto) 3.2% (0-5) Basophils (%) (Auto) 0.3% (0-3) Sodium Level 146mEq/L (134-144) Potassium Level 4.0mEq/L (3.5-5.2) Chloride Level 112mEq/L (97-108) Carbon Dioxide Level 23mmol/L (18-29) Blood Urea Nitrogen 9mg/dL (8-27) Creatinine 1.13mg/dL (0.76-1.27) Estimat Glomerular Filtration Rate 70mL/min (>59) Glucose Level 112mg/dL (60-99) Calcium Level 8.5mg/dL (8.5-10.1) Total Bilirubin 0.3mg/dL (0.0-1.2) Aspartate Amino Transf (AST/SGOT) 36U/L (0-50) Alanine Aminotransferase (ALT/SGPT) 76U/L (0-44) Alkaline Phosphatase 69U/L (25-160) Total Protein 5.6g/dL (6.4-8.4) Albumin 3.6g/dL (3.4-5.0) Microbiology 08/03/17 Blood Culture - No growth at 2 days 08/03/17 Stool for WBCs - Negative Result Diagram: 08/05/176 08/05/176 X-Rays, CTs and MRIs 08/02/17 - CT ABDOMEN AND PELVIS WITH CONTRAST IMPRESSION: 1. Mild appearance of diffuse small bowel thickening suggestive of enteritis. 2. Nonspecific appearance of scattered minimally prominent fluid filled colon loops. This could be secondary to given history of diarrhea. No definitive obstruction or inflammatory change is identified. Approved by: Shahana Siegel M.D. on 08/02/2017 at 20:49 08/03/17 - US ABDOMEN, LIMITED IMPRESSION: 1. Mild common bile duct dilatation. No other findings to suggest biliary obstruction. If there is clinical suspicion for choledocholithiasis or central biliary mass, MRCP may be helpful. 2. No findings to suggest acute cholecystitis. Approved by: Christine Gray M.D. on 08/03/2017 at 18:58 . Assessment & Plan 62-year-old gentleman with a history of hypertension, diabetes mellitus type 2, gout, and nephrolithiasis who presented to the ED with a 5 week history of diarrhea and 1-2 days of bright red per rectum. GI consulted for further evaluation and management of possible GI bleed. Subacute enteritis likely infectious and pathogen cleared prior to testing. -Patient presented with a leukocytosis (wbc 23.1) and diarrhea for the past 5 weeks. -CT abdomen did show diffuse small bowel thickening and no definitive obstruction or inflammatory change is identified. Elevated transaminases which is resolving. Likely due to subacute viral enteritis. -AST/ALT mildly elevated at 92/158 on admission with normal alk phos and total bili thus gallbladder pathology less likely. -AST and ALT continue to trend down, most recently AST 36 and ALT 76. Patient may have a component of fatty liver disease as AST/ALT are < 4 times upper limit of normal. -Pt denies hx of hepatitis and alcohol use. Hepatitis panel negative RECOMMENDATIONS: -Giardia and cryptococcus antigen- pending -Stool electrolytes/osmolarity still pending -Continue antibiotics for now -Cholestyramine scheduled -Stop Lomotil, if patient's diarrhea returns will prep for colonoscopy. If he is tolerating his diet and doing well off the Lomotil would recommend continuing cholestyramine at discharge and outpatient followup. Additional problems managed by primary hospitalist: -Acute kidney injury -Mildly elevated transaminases -Hypertension -Type II diabetes -Gout . I examined the patient with the resident and agree with above. GI Prophylaxis: H2 gabi VTE Mechanical Devices: Intermittant Pneumatic CD Resuscitation Status: CPR: Attempt Resuscitation Alisha Plaza DO Aug 05, 2017 08:57 Fran Joseph MD Aug 06, 2017 09:30 GI Prophylaxis: H2 gabi VTE Mechanical Devices: Intermittant Pneumatic CD Resuscitation Status: CPR: Attempt Resuscitation Alisha Plaza DO Aug 05, 2017 08:57
[2017-08-05 09:03] VITALS: BP 135/90; PULSE 60; RESP 18; O2SAT 97
--- NOTE | 2017-08-05 13:49 | PCM.PNMED ---
Subjective Date of Service Aug 05, 2017 Subjective Patient this morning when rounded on says last bowel movement was yesterday. He denies any fevers chills. Denies any significant abdominal cramping. Exam Vital Signs Vital Sign - Last Date Time Temp Pulse Resp B/P Pulse Ox O2 Delivery O2 Flow Rate FiO2 08/05/17 09:03 36.6 60 18 135/90 97 Room Air Intake and Output 08/04/17 08/04/17 08/05/17 Cumulative From/Thru 15:00 23:00 07:00 08/02/17 17:43 - 08/05/17 06:45 Intake Total 1915 ml 1833 ml 68024 ml Output Total 700 ml 1150 ml 4450 ml Balance 1215 ml 683 ml 6157 ml Intake Oral 340 ml 250 ml 1410 ml IV Total 1575 ml 1583 ml 9197 ml Output Urine Total 700 ml 1150 ml 3850 ml Stool Total 600 ml # Bowel Movements 1 0 10 Exam Constitutional: Middle-aged male in no acute distress Head: Normocephalic and atraumatic Chest: Clear to auscultation Cor: Regular rate and rhythm S1-S2 without murmur Abdomen: Soft nontender bowel sounds present Extremities: No pedal edema Neuro: Alert and oriented 3, motor strength is intact bilaterally Lab and Diagnostics Laboratory Tests 72 Hours Test 08/02/17 18:17 08/02/17 19:53 08/03/17 00:54 08/03/17 05:05 White Blood Count 23.1th/mm3 (3.8-10.1) 10.3th/mm3 (3.8-10.1) Red Blood Count 5.86mil/mm3 (4.40-5.80) 4.59mil/mm3 (4.40-5.80) Hemoglobin 17.7g/dL (13.8-17.2) 14.0g/dL (13.8-17.2) Hematocrit 51.0% (41.0-50.0) 40.2% (41.0-50.0) Mean Corpuscular Volume 87.0fL (81-100) 87.6fL (81-100) Mean Corpuscular Hemoglobin 30.2pg (27.0-35.0) 30.5pg (27.0-35.0) Mean Corpuscular Hemoglobin Concent 34.7% (32.0-37.0) 34.8% (32.0-37.0) Red Cell Distribution Width 14.2% (12.3-15.4) 13.9% (12.3-15.4) Platelet Count 251bil/L (150-400) 180bil/L (150-400) Neutrophils (%) (Auto) 70.8% (40-74) 62.0% (40-74) Lymphocytes (%) (Auto) 14.7% (14-46) 22.8% (14-46) Monocytes (%) (Auto) 11.6% (4-12) 11.5% (4-12) Eosinophils (%) (Auto) 2.2% (0-5) 3.3% (0-5) Basophils (%) (Auto) 0.3% (0-3) 0.3% (0-3) Sodium Level 138mEq/L (134-144) 140mEq/L (134-144) Potassium Level 3.7mEq/L (3.5-5.2) 3.8mEq/L (3.5-5.2) Chloride Level 96mEq/L (97-108) 106mEq/L (97-108) Carbon Dioxide Level 24mmol/L (18-29) 21mmol/L (18-29) Blood Urea Nitrogen 19mg/dL (8-27) 18mg/dL (8-27) Creatinine 1.30mg/dL (0.76-1.27) 1.14mg/dL (0.76-1.27) Estimat Glomerular Filtration Rate 60mL/min (>59) 70mL/min (>59) Glucose Level 132mg/dL (60-99) 113mg/dL (60-99) Calcium Level 9.8mg/dL (8.5-10.1) 8.2mg/dL (8.5-10.1) Total Bilirubin 0.5mg/dL (0.0-1.2) 0.6mg/dL (0.0-1.2) Aspartate Amino Transf (AST/SGOT) 92U/L (0-50) 58U/L (0-50) Alanine Aminotransferase (ALT/SGPT) 158U/L (0-44) 105U/L (0-44) Alkaline Phosphatase 92U/L (25-160) 60U/L (25-160) Total Protein 8.1g/dL (6.4-8.4) 5.6g/dL (6.4-8.4) Albumin 4.6g/dL (3.4-5.0) 3.5g/dL (3.4-5.0) Lipase 46U/L (13-60) Hold Hope Top Tube Received (Received) Urine Color Dark yellow (YELLOW) Urine Appearance Hazy (CLEAR,HAZY) Urine pH 5.5 (5.0-8.0) Urine Specific [place] 1.025 (1.003-1.035) Urine Protein Negativemg/dL (NEG,TRACE) Urine Glucose (UA) Negativemg/dL (NEGATIVE) Urine Ketones Negativemg/dL (NEGATIVE) Urine Occult Blood Negative (NEGATIVE) Urine Nitrite Negative (NEGATIVE) Urine Bilirubin Negative (NEGATIVE) Urine Urobilinogen Normalmg/dL (NORMAL) Urine Leukocyte Esterase Negative (NEGATIVE) Urine RBC 0-2/hpf (0-2) Urine WBC 0-5/hpf (0-5) Urine Epithelial Cells Occasional/hpf (NONE-MOD) Urine Crystals Amorphous urates (NONE Urine Bacteria Few/hpf (NONE-FEW) Urine Hyaline Casts None/lpf (NONE) Urine Granular Casts None seen (NONE SEEN) Urine Waxy Casts None seen (NONE SEEN) Urine Red Blood Cell Casts None seen (NONE SEEN) Urine White Blood Cell Casts None seen (NONE SEEN) Urine Mucus None seen (None Seen) Urine Trichomonas None seen (NONE SEEN) Urine Yeast None (NONE SEEN) Urinalysis Comment None Urine Culture Reflexed Not indicated Procalcitonin 0.02ng/mL (0.00-0.08) 0.05ng/mL (0.00-0.08) Hemoglobin A1c 8.2% (4.8-5.6) Lactic Acid Level 0.8mmol/L (0.4-2.0) Phosphorus Level 3.2mg/dL (2.5-4.9) Magnesium Level 1.8mg/dL (1.6-2.6) Hepatitis A IgM Antibody Negative (Negative) Hepatitis B Surface Antigen Negative (Negative) Hepatitis B Core IgM Antibody Negative (Negative) Hepatitis C Antibody <0.1s/co ratio (0.0-0.9) Hepatitis C Comment Comment (.) Test 08/03/17 17:42 08/03/17 18:01 08/03/17 20:35 08/03/17 20:55 Hemoglobin 14.3g/dL (13.8-17.2) 14.3g/dL (13.8-17.2) Hematocrit 40.2% (41.0-50.0) 41.8% (41.0-50.0) Stool Osmolality 244mOsmol/kg (Not Estab.) Test 08/04/17 00:55 08/04/17 05:25 08/05/17 04:46 Hemoglobin 13.7g/dL (13.8-17.2) 13.5g/dL (13.8-17.2) 14.4g/dL (13.8-17.2) Hematocrit 40.0% (41.0-50.0) 39.4% (41.0-50.0) 41.8% (41.0-50.0) Sodium Level 141mEq/L (134-144) 146mEq/L (134-144) Potassium Level 3.9mEq/L (3.5-5.2) 4.0mEq/L (3.5-5.2) Chloride Level 107mEq/L (97-108) 112mEq/L (97-108) Carbon Dioxide Level 21mmol/L (18-29) 23mmol/L (18-29) Blood Urea Nitrogen 12mg/dL (8-27) 9mg/dL (8-27) Creatinine 1.06mg/dL (0.76-1.27) 1.13mg/dL (0.76-1.27) Estimat Glomerular Filtration Rate 76mL/min (>59) 70mL/min (>59) Glucose Level 116mg/dL (60-99) 112mg/dL (60-99) Calcium Level 8.2mg/dL (8.5-10.1) 8.5mg/dL (8.5-10.1) White Blood Count 11.8th/mm3 (3.8-10.1) Red Blood Count 4.71mil/mm3 (4.40-5.80) Mean Corpuscular Volume 88.7fL (81-100) Mean Corpuscular Hemoglobin 30.6pg (27.0-35.0) Mean Corpuscular Hemoglobin Concent 34.4% (32.0-37.0) Red Cell Distribution Width 13.9% (12.3-15.4) Platelet Count 183bil/L (150-400) Neutrophils (%) (Auto) 71.6% (40-74) Lymphocytes (%) (Auto) 15.4% (14-46) Monocytes (%) (Auto) 9.2% (4-12) Eosinophils (%) (Auto) 3.2% (0-5) Basophils (%) (Auto) 0.3% (0-3) Total Bilirubin 0.3mg/dL (0.0-1.2) Aspartate Amino Transf (AST/SGOT) 36U/L (0-50) Alanine Aminotransferase (ALT/SGPT) 76U/L (0-44) Alkaline Phosphatase 69U/L (25-160) Total Protein 5.6g/dL (6.4-8.4) Albumin 3.6g/dL (3.4-5.0) Result Diagram: 08/05/17 0446 08/05/17 0446 X-Rays, CTs and MRIs 08/02/17 - CT ABDOMEN AND PELVIS WITH CONTRAST IMPRESSION: 1. Mild appearance of diffuse small bowel thickening suggestive of enteritis. 2. Nonspecific appearance of scattered minimally prominent fluid filled colon loops. This could be secondary to given history of diarrhea. No definitive obstruction or inflammatory change is identified. Approved by: Shahana Siegel M.D. on 08/02/2017 at 20:49 08/03/17 - US ABDOMEN, LIMITED IMPRESSION: 1. Mild common bile duct dilatation. No other findings to suggest biliary obstruction. If there is clinical suspicion for choledocholithiasis or central biliary mass, MRCP may be helpful. 2. No findings to suggest acute cholecystitis. Approved by: Christine Gray M.D. on 08/03/2017 at 18:58 . Assessment & Plan 62-year-old gentleman with a history of hypertension, diabetes mellitus type 2, gout, and nephrolithiasis who presented to the ED with a 5 week history of diarrhea and 1-2 days of bright red per rectum. GI consulted for further evaluation and management of possible GI bleed. Subacute enteritis likely infectious and pathogen cleared prior to testing. -Patient presented with a leukocytosis (wbc 23.1) and diarrhea for the past 5 weeks. -CT abdomen did show diffuse small bowel thickening and no definitive obstruction or inflammatory change is identified. Elevated transaminases which is resolving. Likely due to subacute viral enteritis. -AST/ALT mildly elevated at 92/158 on admission with normal alk phos and total bili thus gallbladder pathology less likely. -AST and ALT continue to trend down, most recently AST 36 and ALT 76. Patient may have a component of fatty liver disease as AST/ALT are < 4 times upper limit of normal. -Pt denies hx of hepatitis and alcohol use. Hepatitis panel negative RECOMMENDATIONS: -Giardia and cryptococcus antigen- pending -Stool electrolytes/osmolarity still pending -Continue antibiotics for now -Cholestyramine scheduled -Stop Lomotil, if patient's diarrhea returns will prep for colonoscopy. If he is tolerating his diet and doing well off the Lomotil would recommend continuing cholestyramine at discharge and outpatient followup. Additional problems managed by primary hospitalist: -Acute kidney injury -Mildly elevated transaminases -Hypertension -Type II diabetes -Gout . 62-year-old male with type II diabetes and hypertension who presents to the ED due to 5 weeks of ongoing diarrhea up to 8 times daily with no hematochezia. Subacute enteritis with leukocytosis and 2 bouts of hematochezia; present admission; ongoing -Patient's been suffering from this for 5 weeks with up to 8 bowel movements daily -Patient had hematochezia this morning likely related to hemorrhoids that were seen on physical exam by the ED physician -Previous outpatient workup did not reveal a cause and PCR of stool did not reveal a obvious infectious etiology -Etiology is somewhat unclear although with right upper quadrant pain questionable biliary disease causing osmotic diarrhea; also be possible Crohn's although less likely, he would have presented sooner. It is also possible that this patient is now reacting to the metformin that he is been taking for some time, although this is less likely -CT of abdomen revealed diffuse small bowel thickening -Leukocytosis of 23,000 iat admission, improved today at 10.3 -Received 1 L normal saline in the ED and 2 more on the floor -Normal saline 125 mL/HR -Dr. Joseph from gastroenterology was consult and will see the patient -Blood Cx are ordered and pending -IV Levaquin recommended for severe diarrhea like the one he is having -Famotidine 20mg IV BID -Check Cryptococcus and Giardia antigen as recommended per gastroenterology as is more sensitive than PCR -As per gastroenterology: -Continue antibiotics for now -Cholestyramine scheduled -Stop Lomotil, if patient's diarrhea returns will prep for colonoscopy. If he is tolerating his diet and doing well off the Lomotil would recommend continuing cholestyramine at discharge and outpatient followup. Acute kidney injury with AGMA; present admission; ongoing -Baseline questionable as last creatinine was couple of years ago and was 1.4; however feel this was likely not his baseline -Current creatinine was 1.3 and patient had contrast for CT -Avoid nephrotoxic medications -NSS 125 mL/HR -If refractory to fluids and continues to progress consider ultrasound and nephrology consult -AG of 18 -->13 this am -Significantly improving Mildly elevated transaminases; present admission; resolved - could be due to patient's dehydration --Due to his age, will order hep panel. Fatty liver is likely as ALT>AST --He has no RUQ pain to suggest biliary etiologies. Hypertension; present on admission; ongoing -Continue home atenolol -Hold HCTZ today Type II diabetes; present on admission; ongoing -Last A1c was reportedly 7, A1C is pending -Home medication: Metformin -Hold metformin -Low dose correctional Gout; present on admission; ongoing -And stable on allopurinol for 10 years; we will continue GI Prophylaxis: H2 gabi VTE Mechanical Devices: Intermittant Pneumatic CD Resuscitation Status: CPR: Attempt Resuscitation Time spent 20 minutes Yvette Fernandez MD Aug 05, 2017 13:49
--- NOTE | 2017-08-05 14:58 | NUR ---
Social Work- Readiness for Discharge/Multidisciplinary Rounds Data: EMR reviewed. Pt is on day 2 of hospitalization for enteritis. Pt discussed in multidisciplinary rounds, pt is improving on IV abx. Pt is likely to d/c on PO abx tomorrow. No SW needs identified. Pt anticipated to d/c home with family to transport via POV. No d/c needs anticipated. SW continues to follow. Assessment: Pt who is independent at baseline. Plan: Pt to d/c home tomorrow with family to transport via POV. No d/c needs anticipated. SW continues to follow. RO Joya
--- NOTE | 2017-08-05 15:10 | NUR ---
GI/Blood sugar Pt reports decreased abdominal discomfort this morning and denies nausea. He had a moderate formed BM this morning and reports a return to his normal patterns. Antidiarrheal stopped after his morning dose had been given. Xavier ate lunch and chocolate cake before I could check his blood sugar. Education provided around proper monitoring of BS and insulin administration which was well received by he and his sister. He agrees to alert the nurse going forward prior to eating meals. I will check his BS before dinner.
[2017-08-05 15:30] VITALS: BP 115/87; PULSE 60; RESP 18; O2SAT 97
[2017-08-05 20:30] VITALS: BP 129/83; PULSE 58; RESP 20; O2SAT 99
--- NOTE | 2017-08-05 23:51 | NUR ---
GI Pt reports no BM this shift. States he feels he is getting back to his baseline. Continues with bowel regimen. BS at HS 152. Denies NV, pain. Up in room independently with steady gait. Call light in reach, bed down. Care continues
[2017-08-06] MEDS: Sodium Chloride LOK Flush 10 mL Syringe IVFLUSH SCH ×2 (00:30→08:30)
[2017-08-06] MEDS: 0.9% Sodium Chloride 1,000 ML IV SCH ×2 (00:43→08:43)
[2017-08-06] MEDS: Cholestyramine Resin Powder 4 Gm Packet PO SCH ×2 (02:10→08:30)
[2017-08-06] MEDS: levoFLOXacin Inj 750 MG in IV Premix 1 EACH IV SCH (02:10)
[2017-08-06 04:25] VITALS: BP 118/74; PULSE 69; RESP 18; O2SAT 95
--- NOTE | 2017-08-06 07:13 | NUR ---
GI/activity Pt reports he had a normal formed BM this AM. Up ambulating in halls with his sister.
[2017-08-06] MEDS: Insulin LISPRO 300 Unit/3 mL Inj SUBQ SCH (08:00)
--- NOTE | 2017-08-06 08:01 | PCM.DIMED ---
Discharge Instructions Date of Service Aug 06, 2017 Dates of Hospitalization Aug 03, 2017 at 00:39 Discharge Diagnosis Discharge Diagnosis Acute colitis responsive to IV antibiotics Diet Discharge Diet: Heart Healthy Activity Discharge Activity: Other (progress as tolerated) Patient Instructions Follow-up Provider: Walker Haro MD Follow-up with PCP in: 1 week (, sooner if needed) Yvette Fernandez MD Aug 06, 2017 08:01
[2017-08-06] MEDS ORDERED: LEVO500T79 PO (08:06)
[2017-08-06] MEDS ORDERED: LACT1CAP86 PO (08:06)
--- NOTE | 2017-08-06 08:06 | PCM.PNMED ---
Subjective Date of Service Aug 06, 2017 Subjective GASTROENTEROLOGY PROGRESS NOTE: Attending Physician: Fran Joseph MD Resident Physician: Alisha Plaza DO No acute events overnight. Patient states that he is doing much better and nearly back to baseline. He reports two formed stools since yesterday. He denies fever, chills, abdominal pain, nausea, vomiting, bloody or dark colored stool. Exam Vital Signs Vital Sign - Last Date Time Temp Pulse Resp B/P Pulse Ox O2 Delivery O2 Flow Rate FiO2 08/06/17 04:25 36.1 69 18 118/74 95 Room Air Intake and Output 08/05/17 08/05/17 08/06/17 Cumulative From/Thru 15:00 23:00 07:00 08/02/17 17:43 - 08/06/17 03:25 Intake Total 1060 ml 60 ml 00117 ml Output Total 700 ml 5150 ml Balance 360 ml 60 ml 6577 ml Intake Oral 1000 ml 2410 ml IV Total 60 ml 60 ml 9317 ml Output Urine Total 700 ml 4550 ml Stool Total 600 ml # Bowel Movements 1 11 Exam General: Well-appearing. In no acute distress. Lungs: Clear to auscultation bilaterally with no crackles, wheezes, or rhonchi. Cardiovascular: Regular rate/rhythm. No murmurs Abdomen: Soft, Non-tender, Non-distended, No masses, Normoactive bowel tones Extremities: No edema Skin: Warm and dry. No obvious rashes or ulcerations IVs and Medications Medications Reviewed: Medications were reviewed in detail Lab and Diagnostics Laboratory Tests Test 08/06/17 04:46 Sodium Level 142mEq/L (134-144) Potassium Level 3.9mEq/L (3.5-5.2) Chloride Level 107mEq/L (97-108) Carbon Dioxide Level 21mmol/L (18-29) Blood Urea Nitrogen 7mg/dL (8-27) Creatinine 1.07mg/dL (0.76-1.27) Estimat Glomerular Filtration Rate 75mL/min (>59) Glucose Level 146mg/dL (60-99) Calcium Level 8.3mg/dL (8.5-10.1) Microbiology 08/03/17 Blood Culture -No growth at 2 days 08/03/17 Stool for WBCs - Negative Result Diagram: 08/05/176 08/06/176 X-Rays, CTs and MRIs 08/02/17 - CT ABDOMEN AND PELVIS WITH CONTRAST IMPRESSION: 1. Mild appearance of diffuse small bowel thickening suggestive of enteritis. 2. Nonspecific appearance of scattered minimally prominent fluid filled colon loops. This could be secondary to given history of diarrhea. No definitive obstruction or inflammatory change is identified. Approved by: Shahana Siegel M.D. on 08/02/2017 at 20:49 08/03/17 - US ABDOMEN, LIMITED IMPRESSION: 1. Mild common bile duct dilatation. No other findings to suggest biliary obstruction. If there is clinical suspicion for choledocholithiasis or central biliary mass, MRCP may be helpful. 2. No findings to suggest acute cholecystitis. Approved by: Christine Gray M.D. on 08/03/2017 at 18:58 . Assessment & Plan 62-year-old gentleman with a history of hypertension, diabetes mellitus type 2, gout, and nephrolithiasis who presented to the ED with a 5 week history of diarrhea and 1-2 days of bright red per rectum. GI consulted for further evaluation and management of possible GI bleed. Subacute enteritis likely infectious and pathogen cleared prior to testing. -Patient presented with a leukocytosis (wbc 23.1) and diarrhea for the past 5 weeks. -CT abdomen did show diffuse small bowel thickening and no definitive obstruction or inflammatory change is identified. -Giardia antigen negative, stool pcr and wbc negative -Cryptococcus antigen negative -Stool osm/electrolyte pending Elevated transaminases which is resolving. Likely due to subacute viral enteritis. -AST/ALT mildly elevated at 92/158 on admission with normal alk phos and total bili thus gallbladder pathology less likely. -AST and ALT continue to trend down, most recently AST 36 and ALT 76. Patient may have a component of fatty liver disease as AST/ALT are < 4 times upper limit of normal. -Pt denies hx of hepatitis and alcohol use. Hepatitis panel negative RECOMMENDATIONS: -Stool electrolytes/osmolarity still pending -Continue cholestyramine -From GI standpoint stable for discharge -Followup with PCP - Follow-up in the GI clinic next week. Additional problems managed by primary hospitalist: -Acute kidney injury -Mildly elevated transaminases -Hypertension -Type II diabetes -Gout . I examined the patient with the resident and agree with above. GI Prophylaxis: H2 gabi VTE Mechanical Devices: Intermittant Pneumatic CD Resuscitation Status: CPR: Attempt Resuscitation Alisha Plaza DO Aug 06, 2017 07:34 Fran Joseph MD Aug 06, 2017 09:34
[2017-08-06] MEDS ORDERED: QUE9 PO (08:07)
--- NOTE | 2017-08-06 08:14 | PCM.DC.MED ---
Discharge Summary Date of Service Aug 06, 2017 Dates of Hospitalization Date of Hospital Admission Aug 03, 2017 at 00:39 Date of Discharge: Aug 06, 2017 Providers: Admitting Physician: Rey Meadows MD Primary Care Physician: Walker Haro MD Attending Physician: Yvette Fernandez MD Diagnosis at Time of Discharge Diagnosis at Time of Discharge Acute colitis responsive to IV antibiotics Consultations Gastroenterology Procedures XRay, CTs & MRIs 08/02/17 - CT ABDOMEN AND PELVIS WITH CONTRAST IMPRESSION: 1. Mild appearance of diffuse small bowel thickening suggestive of enteritis. 2. Nonspecific appearance of scattered minimally prominent fluid filled colon loops. This could be secondary to given history of diarrhea. No definitive obstruction or inflammatory change is identified. Approved by: Shahana Siegel M.D. on 08/02/2017 at 20:49 08/03/17 - US ABDOMEN, LIMITED IMPRESSION: 1. Mild common bile duct dilatation. No other findings to suggest biliary obstruction. If there is clinical suspicion for choledocholithiasis or central biliary mass, MRCP may be helpful. 2. No findings to suggest acute cholecystitis. Approved by: Christine Gray M.D. on 08/03/2017 at 18:58 . Brief History GASTROENTEROLOGY CONSULT NOTE: Attending Physician: Fran Joseph MD Resident Physician: Alisha Plaza DO Hardeep Gomez is a 62-year-old gentleman with a history of hypertension, diabetes mellitus type 2, and nephrolithiasis who presented to the ED with a 5 week history of diarrhea, now with 1-2 days of bloody stool. He states that a little over a month ago he developed profound diarrhea, noting 8+ liquid stools per day. Associated symptoms at that time included: fatigue, malaise, and generalized weakness as well as hives across his abdomen for 4-5 days. He states that the rash did not itch and has since resolved without treatment. He was evaluated by his PCP since the onset of symptoms and a stool sample was reportedly negative for C. diff, parasites, or other concerning causes of diarrhea. He notes that after approximately two weeks he started to feel better but his symptoms ultimately returned. He denies abdominal pain, urinary symptoms , recent travel, sick contacts, changes in diet or medications. Prior to the day of admission he denies bloody or dark black stool. At presentation he reported bright red blood per rectum and 5 bowel movements that morning. Additionally, he had been without nausea or vomiting but vomited once in the ED. This was noted to be bilious in nature and without blood. Currently he denies headache, dizziness, change in vision, rash, fever, chills, chest pain, shortness of breath, and abdominal pain. He has not appreciated a pattern to his symptoms or any aggravating or alleviating factors. He states that he does not drink alcohol and occasionally smokes a cigar. He denies illicit drug use and recently retired. He reports a colonoscopy five years ago where a few benign polyps were removed. He has no known history of gastrointestinal disorders or colon cancer. In the ED, vital signs were within normal limits. CBC was significant for a leukocytosis (wbc 23.1), hemoconcentration (Hb 17.7/Hct 51) and CMP showed a creatinine of 1.3 and mildly elevated LFTs. Stool PCR and UA were negative and CT abdomen showed mild appearance of diffuse small bowel thickening suggestive of enteritis and no definitive obstruction or inflammatory change is identified. Hospital Course 62-year-old gentleman with a history of hypertension, diabetes mellitus type 2, gout, and nephrolithiasis who presented to the ED with a 5 week history of diarrhea and 1-2 days of bright red per rectum. GI consulted for further evaluation and management of possible GI bleed. Subacute enteritis likely infectious and pathogen cleared prior to testing. -Patient presented with a leukocytosis (wbc 23.1) and diarrhea for the past 5 weeks. -CT abdomen did show diffuse small bowel thickening and no definitive obstruction or inflammatory change is identified. -Giardia antigen negative, stool pcr and wbc negative -Cryptococcus antigen negative -Patient had a well-formed bowel movement today and this is off of Lomotil. We will go ahead and discharge patient home on by mouth Levaquin 7 days along with probiotics. We will also continue with cholestyramine for approximately one week. -We will also hold his metformin for now and can restart as per his primary care provider Elevated transaminases which is resolving. Likely due to subacute viral enteritis. -AST/ALT mildly elevated at 92/158 on admission with normal alk phos and total bili thus gallbladder pathology less likely. -AST and ALT continue to trend down, most recently AST 36 and ALT 76. Patient may have a component of fatty liver disease as AST/ALT are < 4 times upper limit of normal. -Pt denies hx of hepatitis and alcohol use. Hepatitis panel negative Additional problems managed by primary hospitalist: -Acute kidney injury -Mildly elevated transaminases -Hypertension -Type II diabetes -Gout . Exam Vital Signs (Last) Date Time Temp Pulse Resp B/P Pulse Ox O2 Delivery O2 Flow Rate FiO2 08/06/17 04:25 36.1 69 18 118/74 95 Room Air Test 08/02/17 18:17 08/02/17 19:53 08/03/17 05:05 08/03/17 18:01 Lipase 46U/L (13-60) Hold Hope Top Tube Received (Received) Urine Color Dark yellow (YELLOW) Urine Appearance Hazy (CLEAR,HAZY) Urine pH 5.5 (5.0-8.0) Urine Specific [place] 1.025 (1.003-1.035) Urine Protein Negativemg/dL (NEG,TRACE) Urine Glucose (UA) Negativemg/dL (NEGATIVE) Urine Ketones Negativemg/dL (NEGATIVE) Urine Occult Blood Negative (NEGATIVE) Urine Nitrite Negative (NEGATIVE) Urine Bilirubin Negative (NEGATIVE) Urine Urobilinogen Normalmg/dL (NORMAL) Urine Leukocyte Esterase Negative (NEGATIVE) Urine RBC 0-2/hpf (0-2) Urine WBC 0-5/hpf (0-5) Urine Epithelial Cells Occasional/hpf (NONE-MOD) Urine Crystals Amorphous urates (NONE Urine Bacteria Few/hpf (NONE-FEW) Urine Hyaline Casts None/lpf (NONE) Urine Granular Casts None seen (NONE SEEN) Urine Waxy Casts None seen (NONE SEEN) Urine Red Blood Cell Casts None seen (NONE SEEN) Urine White Blood Cell Casts None seen (NONE SEEN) Urine Mucus None seen (None Seen) Urine Trichomonas None seen (NONE SEEN) Urine Yeast None (NONE SEEN) Urinalysis Comment None Urine Culture Reflexed Not indicated Hemoglobin A1c 8.2% (4.8-5.6) Lactic Acid Level 0.8mmol/L (0.4-2.0) Phosphorus Level 3.2mg/dL (2.5-4.9) Magnesium Level 1.8mg/dL (1.6-2.6) Procalcitonin 0.05ng/mL (0.00-0.08) Hepatitis A IgM Antibody Negative (Negative) Hepatitis B Surface Antigen Negative (Negative) Hepatitis B Core IgM Antibody Negative (Negative) Hepatitis C Antibody <0.1s/co ratio (0.0-0.9) Hepatitis C Comment Comment (.) Test 08/03/17 20:35 08/04/17 00:55 08/05/17 04:46 08/06/17 04:46 Stool Osmolality 244mOsmol/kg (Not Estab.) White Blood Count 11.8th/mm3 (3.8-10.1) Red Blood Count 4.71mil/mm3 (4.40-5.80) Hemoglobin 14.4g/dL (13.8-17.2) Hematocrit 41.8% (41.0-50.0) Mean Corpuscular Volume 88.7fL (81-100) Mean Corpuscular Hemoglobin 30.6pg (27.0-35.0) Mean Corpuscular Hemoglobin Concent 34.4% (32.0-37.0) Red Cell Distribution Width 13.9% (12.3-15.4) Platelet Count 183bil/L (150-400) Neutrophils (%) (Auto) 71.6% (40-74) Lymphocytes (%) (Auto) 15.4% (14-46) Monocytes (%) (Auto) 9.2% (4-12) Eosinophils (%) (Auto) 3.2% (0-5) Basophils (%) (Auto) 0.3% (0-3) Total Bilirubin 0.3mg/dL (0.0-1.2) Aspartate Amino Transf (AST/SGOT) 36U/L (0-50) Alanine Aminotransferase (ALT/SGPT) 76U/L (0-44) Alkaline Phosphatase 69U/L (25-160) Total Protein 5.6g/dL (6.4-8.4) Albumin 3.6g/dL (3.4-5.0) Sodium Level 142mEq/L (134-144) Potassium Level 3.9mEq/L (3.5-5.2) Chloride Level 107mEq/L (97-108) Carbon Dioxide Level 21mmol/L (18-29) Blood Urea Nitrogen 7mg/dL (8-27) Creatinine 1.07mg/dL (0.76-1.27) Estimat Glomerular Filtration Rate 75mL/min (>59) Glucose Level 146mg/dL (60-99) Calcium Level 8.3mg/dL (8.5-10.1) Microbiology Results RUN DATE: 08/02/17 [facility] LIVE PAGE 1 RUN TIME: 2153 Specimen Inquiry PHYSICIAN Name: HARDEEP GOMEZ Age/Sex: 62/M Attend Dr: Gabriel Meyer DO Acct: [id number] Unit: [id number] Status: REG ER Location: SED Re08/02/17 Disch: Specimen: [id number] Collected: 08/02/17 Status: EVONNE Req#: [id number] Received: 08/02/17 Source: STOOL Sp Desc : Subm Dr: Gabriel Meyer DO Ordered: JENNIE Comments: Collected by Nurse/Unit? Y/N Y Procedure Result Verified Site Microbiology CAMPYLBACTER SP PCR Final 08/02/17 Not Detected C DIFF TOXIN A AND B BY PCR Final 08/02/17 Not Detected PLESIOMONAS SHIGELLOIDES PCR Final 08/02/17 Not Detected SALMONELLA SPECIES PCR Final 08/02/17 Not Detected YERSINA ENTEROCOLITICA PCR Final 08/02/17 Not Detected VIBRIO SPECIES Final 08/02/17 Not Detected VIBRIO CHOLERAE PCR Final 08/02/17 Not Detected ECOLI PCR ENTEROAGGREGATIVE Final 08/02/17 Not Detected ECOLI PCR ENTEROPATHOGENIC Final 08/02/17 Not Detected ECOLI PCR ENTEROTOXIGENIC Final 08/02/17 Not Detected ECOLI STEC SHIGA TOXIN STX 1 2 Final 08/02/17 Not Detected ECOLI 0157 PCR Final 08/02/17 Not Detected SHIGELLA SP EIEC PCR Final 08/02/17 Not Detected CONTINUED ON NEXT PAGE RUN DATE: 08/02/17 [facility] LIVE PAGE 2 RUN TIME: 2153 Specimen Inquiry PHYSICIAN Patient: HARDEEP GOMEZ [id number] (Continued) Specimen: [id number] Collected: 08/02/17 Received: 08/02/17 (Continued) Procedure Result Verified Site CRYPTOSPORIDIUM PCR Final 08/02/17 Not Detected Microbiology (Continued) CYCLOSPORA CAYETANENISIS PCR Final 08/02/17 Not Detected ENTAMOEBA HISTOLYTICA PCR Final 08/02/17 Not Detected GIARDIA LAMBIA PCR Final 08/02/17 Not Detected ADENOVIRUS PCR F 40 OR 41 Final 08/02/17 Not Detected ASTROVIRUS PCR Final 08/02/17 Not Detected NOROVIRUS GI GI11 Final 08/02/17 Not Detected ROTAVIRUS PCR Final 08/02/17 Not Detected SAPOVIRUS PCR Final 08/02/17 SAPOVIRUS PCR Not Detected Reference Interval Not Detected Results for PCR testing for Stool pathogens must be taken in clinical context when making treatment decisions. Since PCR testing is more sensitive than traditonal technigues, it allows for detection of low levels of pathogens and may be detecting carrier states rather than infections. END OF REPORT RUN DATE: 08/05/17 [facility] LIVE PAGE 1 RUN TIME: 1609 Specimen Inquiry PHYSICIAN Name: JASONHARDEEP Age/Sex: 62/M Attend Dr: Yvette Fernandez MD Acct: [id number] Unit: [id number] Status: ADM IN [place]: [facility] [place] 1004-1 Re08/03/17 Disch: Specimen: [id number] Collected: 08/03/17-2024 Status: COMP Req#: [id number] Received: 08/03/17 Source: STOOL Sp Desc : [facility] ASP Cynthia Dr: Alisha Plaza DO Ordered: GIARDIA Procedure Result Verified Site Microbiology JOLYNN GIARDIA FECAL AG Final 08/05/17- 1609 LCB Negative Reference Range: Negative Performed at: [address] [id number] Swatch Checker: Tylor Gomez MD, Phone: [phone] [facility]#[id number] Test Performed at [facility] RUN DATE: 08/04/17 [facility] LIVE PAGE 1 RUN TIME: 912 Specimen Inquiry PHYSICIAN Name: HARDEEP GOMEZ Age/Sex: 62/M Attend Dr: Yvette Fernandez MD Acct: [id number] Unit: [id number] Status: ADM IN Location: [facility] 1004-1 Re08/03/17 Disch: Specimen: [id number] Collected: 08/03/17 Status: EVONNE Re#: [id number] Received: 08/03/17 Source: STOOL Sp Desc : Subm Dr: Alisha Plaza DO Ordered: STOOL WBC Comments: Collected by Nurse/Unit? Y/N Y Procedure Result Verified Site Microbiology JOLYNN STOOL WBC STAIN Final 08/04/17 STOOL WBC NO WBCS SEEN Discharge Medications Discharge Medications Allopurinol (Allopurinol) 300 Mg Tablet 300 MG PO DAILY (Reported) Aspirin (Aspirin) 81 Mg Tablet 81 MG PO DAILY (Reported) Atenolol (Atenolol) 50 Mg Tablet 50 MG PO DAILY (Reported) Cholestyramine (Cholestyramine Packet) 4 Gm Packet 4 GM PO Q6H Prescribed by: MD Rosalind STEWARD/Om3/Dha/Epa/Om6/Lip/Astx (Krill Oil 1,000 mg Softgel) 1 Each Capsule 1 EACH PO DAILY (Reported) Lactobacillus Acidophilus (Acidophilus Lactobacilli) 500 Million Cell Capsule 1 EACH PO TIDWM Prescribed by: YVETTE FERNANDEZ MD Levofloxacin (Levofloxacin) 500 Mg Tablet 500 MG PO DAILY Prescribed by: YVETTE FERNANDEZ MD Multivitamin (Multivitamins) 1 Each Capsule 1 CAPSULE PO DAILY (Reported) Triamterene/HCTZ 37.5-25 mg (Triamterene/HCTZ 37.5-25 mg) 1 Each Tablet 1 TAB PO DAILY (Reported) As needed Tadalafil (Cialis) 5 Mg Tablet 5 MG PO PRN PRN PRN ED (Reported) As directed by physician. Followup Plan Discharge Diet: Heart Healthy Discharge Activity: Other (progress as tolerated) Follow-up Provider: Walker Haro MD Follow-up with PCP in: 1 week (, sooner if needed) Time spent 60 minutes copies to: Walker Haro MD, Cheryl A MD Aug 06, 2017 08:14
[2017-08-06] MEDS: Famotidine Inj 20 MG in IV Premix 1 EACH IV SCH (08:30)
--- NOTE | 2017-08-06 10:44 | NUR ---
Social Work: Readiness for Discharge/Multidisciplinary Rounds D: EMR reviewed. Pt is on day 3 of hospitalization. Pt discussed in multidisciplinary rounds, and is medically stable for discharge. No SW needs identified. Pt to discharge home with family to transport via POV. No discharge needs identified. A: Pt who is independent at baseline. P: Pt to discharge home today with family to transport via POV. No discharge needs identified. No MD orders received. RO Sidhu
[2017-08-06 17:08] LABS: Cryptococcal Ag Negative (Negative)
== END 2017-08-06 11:40 | disposition home or self-care (01) | DRG 392 ==
LOC: SED 17:30 → OSC 08-03 00:39
PROVIDERS: ADMIT Hospitalist; ATTEND Specialist
DX: A09 Infectious gastroenteritis and colitis, unspecified (principal); N17.9 Acute kidney failure, unspecified; K92.1 Melena; Z79.82 Long term (current) use of aspirin; Z79.84 Long term (current) use of oral hypoglycemic drugs; I10 Essential (primary) hypertension; E11.9 Type 2 diabetes mellitus without complications; R74.0 Nonspecific elevation of levels of transaminase and lactic acid dehydrogenase [LDH]; M10.9 Gout, unspecified; D72.829 Elevated white blood cell count, unspecified